=== PATIENT | male | born 1935 | race Caucasian/White ===

== ENCOUNTER 2018-11-23 03:44 | Emergency (ER) | payer MEDICARE, OTHER ==
[~2018-11-23] VITALS: Ht 175.3 cm; Wt 99.8 kg
--- NOTE | 2018-11-23 04:21 | ED Chest Pain ---
General Chief Complaint: Chest Pain Stated Complaint: CHEST PAIN, SOB Nursing Triage Note: Chest pain starting about 1 hour ago. 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 Symptoms began 90 minutes ago on bed. Patient states he woke up with us chest feeling funny. He does not radiate into his back and neck and shoulder job. He is not short of breath but does report nausea. Denies sweats. No fever, chills. No other acute symptoms or complaints. No history of CAD valvular heart disease. Patient does have a pacemaer located in [place], [place] Timing/Duration: 1-3 hours Severity/Quality: mild Location: substernal, epigastric Radiation: no radiation Activities at Onset: sleep, other (cough) Modifying Factors: improves with coughing ASA po SUPERVISOR PIG MACHINE: No NTG SL SUPERVISOR PIG MACHINE: No Associated Symptoms: abdominal pain Allergies and Home Medications Allergies Coded Allergies: No Known Drug Allergies (Unverified , 11/23/18) Home Medications Aspirin 325 Mg Tablet, 325 MG PO DAILY, (Reported) Calcium Carbonate 500 Mg Tablet, 500 MG PO DAILY, (Reported) Donepezil HCl 10 Mg Tablet, 10 MG PO DAILY, (Reported) Gemfibrozil 600 Mg Tablet, 600 MG PO DAILY, (Reported) Ibuprofen 800 Mg Tablet, 800 MG PO DAILY PRN for PAIN-MILD, (Reported) Metoprolol Tartrate 50 Mg Tablet, 50 MG PO BID, (Reported) Multivitamin 1 Each Tablet, 1 EACH PO DAILY, (Reported) Oxybutynin Chloride 5 Mg Tablet, 5 MG PO BID, (Reported) Ranitidine HCl 150 Mg Tablet, 150 MG PO DAILY, (Reported) Timolol Maleate 5 Ml Drop.daily, 5 ML OP DAILY, (Reported) Topiramate 200 Mg Tablet, 200 MG PO BID, (Reported) Travoprost 5 Ml Drops, 5 ML OP DAILY, (Reported) Patient Home Medication List Home Medication List Reviewed: Yes Review of Systems Review of Systems Constitutional: no symptoms reported Respiratory: Cough Cardiovascular: See HPI Gastrointestinal: No Symptoms Reported, See HPI, Abdomen Distended, Abdominal Pain, Nausea Genitourinary: No Symptoms Reported Musculoskeletal: no symptoms reported Skin: no symptoms reported Psychiatric/Neurological: No Symptoms Reported Endocrine: No Symptoms Reported Hematologic/Lymphatic: No Symptoms Reported Past Vfowxci-Ixctrj-Ttgzpf Hx Patient Social History Alcohol Use: Denies Use Recreational Drug Use: No Smoking Status: Never a Smoker 2nd Hand Smoke Exposure: No Recent Foreign Travel: No Contact w/Someone Who Travel: No Recent Infectious Disease Expo: No Recent Hopitalizations: No Physical Abuse: No Sexual Abuse: No Mistreated: No Fear: No Seasonal Allergies Seasonal Allergies: No Past Medical History Surgeries: Yes (Multiple hernia repairs) Cardiac, Coronary Stent, Orthopedic Respiratory: No Cardiac: Yes Aneurysm, Heart Attack, High Cholesterol, Hypertension Neurological: Yes Dementia Genitourinary: Yes Benign Prostatic Hyperpl Gastrointestinal: No Musculoskeletal: No Endocrine: No HEENT: Yes Cataract Loss of Vision: Left Hearing Impairment: Denies Cancer: Yes Melanoma Psychosocial: No Integumentary: No Blood Disorders: No Physical Exam Vital Signs Vital Signs - First Documented 11/23/18 03:45 Temp 96.5 Pulse 70 Resp 18 B/P (MAP) 163/87 (112) Pulse Ox 96 O2 Delivery Room Air Capillary Refill : Less Than 3 Seconds Height, Weight, BMI Height: 5'9.00" Weight: 220lbs. oz. 99.724193uo; BMI Method:Estimated General Appearance: No Apparent Distress, WD/WN HEENT: PERRL/EOMI, TMs Normal, Normal ENT Inspection Neck: Full Range of Motion, Normal Inspection Respiratory: Chest Non Tender, Lungs Clear, No Accessory Muscle Use Cardiovascular: Regular Rate, Rhythm, No Edema Gastrointestinal: Normal Bowel Sounds, No Organomegaly Neurologic/Psychiatric: Alert, Oriented x3, No Motor/Sensory Deficits Focused Exam Sepsis Stage: Ruled Out Respiratory: Chest Non Tender, Lungs Clear Cardiovascular: Regular Rate, Rhythm Progress/Results/Core Measures Results/Orders Lab Results Laboratory Tests Test 11/23/18 04:15 11/23/18 06:08 Range/Units White Blood Count 8.0 4.3-11.0 10^3/uL Red Blood Count 4.46 4.35-5.85 10^6/uL Hemoglobin 15.1 13.3-17.7 G/DL Hematocrit 45 40-54 % Mean Corpuscular Volume 101 H 80-99 FL Mean Corpuscular Hemoglobin 34 25-34 PG Mean Corpuscular Hemoglobin Concent 34 32-36 G/DL Red Cell Distribution Width 12.2 10.0-14.5 % Platelet Count 145 130-400 10^3/uL Mean Platelet Volume 11.9 H 7.4-10.4 FL Neutrophils (%) (Auto) 69 42-75 % Lymphocytes (%) (Auto) 21 12-44 % Monocytes (%) (Auto) 8 0-12 % Eosinophils (%) (Auto) 0 0-10 % Basophils (%) (Auto) 1 0-10 % Neutrophils # (Auto) 5.5 1.8-7.8 X 10^3 Lymphocytes # (Auto) 1.7 1.0-4.0 X 10^3 Monocytes # (Auto) 0.6 0.0-1.0 X 10^3 Eosinophils # (Auto) 0.1 0.0-0.3 10^3/uL Basophils # (Auto) 0.0 0.0-0.1 10^3/uL D-Dimer 0.81 H 0.00-0.49 UG/ML Sodium Level 141 135-145 MMOL/L Potassium Level 3.9 3.6-5.0 MMOL/L Chloride Level 103 98-107 MMOL/L Carbon Dioxide Level 21 21-32 MMOL/L Anion Gap 17 H 5-14 MMOL/L Blood Urea Nitrogen 34 H 7-18 MG/DL Creatinine 0.99 0.60-1.30 MG/DL Estimat Glomerular Filtration Rate > 60 BUN/Creatinine Ratio 34 Glucose Level 127 H 70-105 MG/DL Calcium Level 9.1 8.5-10.1 MG/DL Corrected Calcium 8.9 8.5-10.1 MG/DL Total Bilirubin 0.3 0.1-1.0 MG/DL Aspartate Amino Transf (AST/SGOT) 31 5-34 U/L Alanine Aminotransferase (ALT/SGPT) 26 0-55 U/L Alkaline Phosphatase 88 40-136 U/L Troponin T 12 10 <=15 NG/L Pro-B-Type Natriuretic Peptide 131.6 H <75.0 PG/ML Total Protein 7.0 6.4-8.2 GM/DL Albumin 4.2 3.2-4.5 GM/DL Lipase 29 8-78 U/L Rosemary Rangel - LILLY,GIACOMO DO Cbc With Automated Diff (11/23/18 03:58) Comprehensive Metabolic Panel (11/23/18 03:58) Lipase (11/23/18 03:58) Troponin T (11/23/18 03:58) Chest 1 View Ap/Pa Only (11/23/18 03:58) Probnp Fs (11/23/18 03:59) Ekg Tracing (11/23/18 03:48) Ct Angio Chest/Abd W (11/23/18 05:14) Troponin T (11/23/18 05:18) Iohexol Injection (Omnipaque 350 Mg/Ml 1 (11/23/18 05:30) Received Contrast (Hold Metformin- Contr (11/23/18 05:30) Sodium Chloride Flush (Catheter Flush Sy (11/23/18 05:30) Ns (Ivpb) (Sodium Chloride 0.9% Ivpb Bag (11/23/18 05:30) Fibrin Degradation Products (11/23/18 06:54) Medications Given in ED Current Medications Medications Dose Ordered Sig/Isidro Route Start Time Stop Time Status Last Admin Dose Admin Iohexol 125 ml ONCE ONCE IV 11/23/18 05:30 11/23/18 07:15 DC 11/23/18 06:00 125 ML Sodium Chloride 10 ml NEEDED PRN IV 11/23/18 05:30 11/23/18 06:00 10 ML Sodium Chloride 50 ml ONCE ONCE IV 11/23/18 05:30 11/23/18 07:15 DC 11/23/18 06:00 50 ML Vital Signs/I&O 11/23/18 03:45 Temp 96.5 Pulse 70 Resp 18 B/P (MAP) 163/87 (112) Pulse Ox 96 O2 Delivery Room Air Blood Pressure Mean: 112 Departure Communication (Admissions) Patient is chest pain-free. EKG shows an atrial paced rhythm without acute ST changes. Repeat troponin is negative. Chest x-ray nondiagnostic. CT chest reveals a 4.8 cm ascending aortic aneurysm with mural thrombus without evidence of dissection. Case discussed with Dr. Petersen front office administrator for CT surgery at [facility] he does not feel symptoms related to aneurysm. Recommends outpatient follow-up is scheduled for routine surveillance. Patient does have nasal congestion, postnasal drip, and cough possibly contributing GI AND chest pain. Recommend supportive care with PCP follow-up early next week. Return precautions reviewed. Patient verbalizes understanding and agreement discharge instructions prior to departure. Impression Primary Impression: Chest pain Additional Impressions: Bronchitis Ascending aortic aneurysm Disposition: HOME, SELF-CARE Condition: Improved Departure-Patient Inst. Decision time for Depature: 08:24 Referrals: NO,LOCAL PHYSICIAN (PCP) Primary Care Physician Patient Instructions: Chest Pain (DC), Acute Bronchitis Add. Discharge Instructions: Please take Mucinex Tylenol as needed for cough and chest wall pain. Follow-up with your PCP in 3 days for reevaluation of chest pain and cough. Follow-up with your plug cutter scheduled for reevaluation of thoracic aneurysm. Return to ED if new or worsening symptoms. All discharge instructions reviewed with patient and/or family. Voiced understanding. GIACOMO LILLY DO Nov 23, 2018 04:21
[2018-11-23 04:43] LABS: HEMATOCRIT 45 % (40-54); HEMOGLOBIN 15.1 G/DL (13.3-17.7); MEAN CORPUSCULAR HEMOGLOBIN 34 PG (25-34); MEAN CORPUSCULAR HGB CONC 34 G/DL (32-36); MEAN CORPUSCULAR VOLUME 101 FL (80-99); PLATELET COUNT 145 10^3/uL (130-400); RED CELL DISTRIBUTION WIDTH 12.2 % (10.0-14.5)
[2018-11-23 04:44] LABS: BASOPHILS % (AUTO) 1 % (0-10); EOSINOPHILS # (AUTO) 0.1 10^3/uL (0.0-0.3); EOSINOPHILS % (AUTO) 0 % (0-10); LYMPHOCYTES # (AUTO) 1.7 X 10^3 (1.0-4.0); LYMPHOCYTES % (AUTO) 21 % (12-44); MEAN PLATELET VOLUME 11.9 FL (7.4-10.4); MONOCYTES # (AUTO) 0.6 X 10^3 (0.0-1.0); MONOCYTES % (AUTO) 8 % (0-12); NEUTROPHILS # (AUTO) 5.5 X 10^3 (1.8-7.8); NEUTROPHILS % (AUTO) 69 % (42-75)
[2018-11-23 05:06] LABS: ALANINE AMINOTRANSFERASE 26 U/L (0-55); ALKALINE PHOSPHATASE 88 U/L (40-136); BILIRUBIN,TOTAL 0.3 MG/DL (0.1-1.0); BUN/CREATININE RATIO 34; CALCIUM 9.1 MG/DL (8.5-10.1); CARBON DIOXIDE 21 MMOL/L (21-32); CHLORIDE 103 MMOL/L (98-107); CREATININE SERUM 0.99 MG/DL (0.60-1.30); GFR ESTIMATED > 60; GLUCOSE 127 MG/DL (70-105); POTASSIUM 3.9 MMOL/L (3.6-5.0); SODIUM 141 MMOL/L (135-145)
[2018-11-23 05:07] LABS: ALBUMIN 4.2 GM/DL (3.2-4.5)
[2018-11-23 05:11] LABS: LIPASE 29 U/L (8-78)
[2018-11-23] MEDS ORDERED: HOLD METFORMIN - RECEIVED CONTRAST 20 ML VIAL IV SCH (05:30)
[2018-11-23] MEDS ORDERED: CATHETER FLUSH 10 ML SYR IV PRN (05:30)
[2018-11-23] MEDS ORDERED: IOHEXOL 350 MG/ML 150 ML (OMNIPAQUE 350) VIAL IV ONE (05:30)
[2018-11-23] MEDS ORDERED: NS 50 ML (IVPB) BAG IV ONE (05:30)
--- NOTE | 2018-11-23 07:47 | Diagnostic Imaging Report ---
PROCEDURE: CT angiography chest, abdomen and pelvis with intravenous contrast. TECHNIQUE: After intravenous administration of contrast, thin section axial CT angiography of the chest, abdomen, and pelvis were obtained. Multiple MIP reformats were provided. Auto Exposure Controls were utilized during the CT exam to meet ALARA standards for radiation dose reduction. DATE: November 23, 2018. INDICATION: 83-year-old male, chest pain and shortness of breath. History of aneurysm. COMPARISON: CT chest and abdomen September 23, 2009. FINDINGS: There is no identified pulmonary nodule or lung mass. There is groundglass attenuation in the right upper lobe, right lower lobe, left lower lobe, and the posterior aspect of the left upper lobe. There are some areas of mild linear opacities that likely relate to mild atelectasis. There is no additional identified focal airspace consolidation. There is no pneumothorax. There is no pleural effusion. There is no identified pulmonary embolus. The main pulmonary artery caliber measures 2.7 cm in diameter which is within normal limits. There are coronary artery calcifications and areas of atherosclerotic disease. The heart is not enlarged. There is no pericardial effusion. The proximal descending thoracic aorta measures up to 3.7 cm in diameter. The distal descending thoracic aorta measures 3.0 cm in diameter. There is no evidence of aortic dissection or acute aortic injury. The celiac axis and superior mesenteric arteries are patent. The bilateral renal arteries are patent. There are 2 renal arteries bilaterally. The inferior mesenteric artery is patent. The abdominal aorta is normal in caliber. There is patent arterial vasculature. There is no identified abnormally enlarged mediastinal, hilar, or axillary lymph node which meets CT size criteria for adenopathy. The outer liver contours are not grossly nodular. There is a low-attenuation lesion in the liver on axial image 101 which measures 1.8 cm in size with internal attenuation measuring 21 Hounsfield units. This is unchanged in size since September 23, 2009 consistent with benign etiology. There is a low-attenuation lesion in the liver on axial image 84 measuring 1.8 cm in size which is also unchanged and does have internal attenuation compatible with a benign hepatic cyst. There are additional subcentimeter low-attenuation liver lesions which are too small to definitively characterize. There is cholelithiasis with no findings to suggest acute cholecystitis. There is no intrahepatic or extrahepatic bile duct dilation. The main pancreatic duct is not abnormally dilated. Unremarkable appearance of the pancreatic parenchyma. The spleen is normal in size. The adrenal glands are unremarkable. There is an exophytic low-attenuation left renal lesion on axial image 139 measuring 4.3 cm in size with internal attenuation of 13 Hounsfield units. This does have prior internal attenuation compatible with benign cyst on prior exam. There are additional benign left renal cysts. There are subcentimeter renal lesions bilaterally which are too small to characterize. The urinary collecting systems are not distended. There is no identified renal or ureteral stone. The urinary bladder is unremarkable in appearance. The intestinal tract is not distended. The appendix is well seen on axial image 176 and adjacent sequential images. There is no evidence of acute appendicitis. There is no free intraperitoneal air. There is no drainable fluid collection. There is no free pelvic fluid. There is no identified abnormally enlarged lymph node in the abdomen or pelvis which meets CT size criteria for adenopathy. There are multilevel degenerative changes of the spine. There are limitations of skeletal assessment given lack of non-MIP coronal and sagittal reformats. IMPRESSION: 1. No evidence of aortic dissection or acute aortic injury. 2. Slight prominence of the proximal descending thoracic aorta measuring up to 3.7 cm in diameter. 3. Multifocal groundglass lung attenuation which may relate to mild edema, atypical infectious process, or pneumonitis. 4. No identified acute abnormality in the abdomen or pelvis. Dictated by: Dictated on workstation # [id number]
[2018-11-23] MEDS ORDERED: GEMF600T8 PO (07:55)
[2018-11-23] MEDS ORDERED: TIMO5DRO31 OP (07:55)
[2018-11-23] MEDS ORDERED: IBUP-1780 PO (07:55)
[2018-11-23] MEDS ORDERED: OXYB5TAB9 PO (07:55)
[2018-11-23] MEDS ORDERED: TOPI200T8 PO (07:55)
[2018-11-23] MEDS ORDERED: CALC-823 PO (07:55)
[2018-11-23] MEDS ORDERED: ASPI-808 PO (07:55)
[2018-11-23] MEDS ORDERED: DONE10TA41 PO (07:55)
[2018-11-23] MEDS ORDERED: FINA5TAB PO (07:55)
[2018-11-23] MEDS ORDERED: TRAV5DRO OP (07:55)
[2018-11-23] MEDS ORDERED: RANI150T11 PO (07:55)
[2018-11-23] MEDS ORDERED: HYDR12.5 PO (07:55)
[2018-11-23] MEDS ORDERED: MULT-974 PO (07:55)
[2018-11-23] MEDS ORDERED: METO50TA15 PO (07:55)
[2018-11-23 08:32] VITALS: BP 144/66
--- NOTE | 2018-11-23 08:35 | Diagnostic Imaging Report ---
EXAMINATION: Chest radiograph, portable AP view. DATE: November 23, 2018 at 0402 hours. INDICATION: 83-year-old male, chest pain, shortness of breath. COMPARISON: CT chest, abdomen and pelvis September 23, 2009. FINDINGS: There are median sternotomy wires. There is a left-sided cardiac assist device with leads. There are surgical leon projecting over the right upper lobe. Lung volumes are somewhat low. There is no identified pneumothorax. There is no large pleural effusion. There are streaky opacities in the left lung base which may relate to atelectasis and/or infiltrate. IMPRESSION: 1. Streaky opacities in the left lung base which may relate to atelectasis and/or infiltrate. 2. Somewhat low lung volumes. Dictated by: Dictated on workstation # [id number]
== END 2018-11-23 08:32 | disposition home or self-care (01) ==
LOC: EDUNIT# 03:44 → ER FS 03:48
DX: R07.81 Pleurodynia (principal); J40 Bronchitis, not specified as acute or chronic; I71.2 Thoracic aortic aneurysm, without rupture; I10 Essential (primary) hypertension; I25.2 Old myocardial infarction; E78.00 Pure hypercholesterolemia, unspecified; F03.90 Unspecified dementia, unspecified severity, without behavioral disturbance, psychotic disturbance, mood disturbance, and anxiety; Z85.820 Personal history of malignant melanoma of skin; Z87.448 Personal history of other diseases of urinary system; Z79.82 Long term (current) use of aspirin; Z95.5 Presence of coronary angioplasty implant and graft; Z98.890 Other specified postprocedural states
CPT/HCPCS: 36415; 71045; 71275; 74175; 80053; 83690; 83880; 84484; 85025; 85379; 93005

== ENCOUNTER → 2019-05-06 | Outpatient (CLI) | payer MEDICARE, OTHER ==
[~2019-05-06] MED LIST: ASPI-808 PO; CALC-823 PO; DONE10TA41 PO; FINA5TAB PO; GEMF600T8 PO; HYDR12.5 PO; IBUP-1780 PO; METO50TA15 PO; MULT-974 PO; OXYB5TAB9 PO; RANI150T11 PO; TIMO5DRO31 OP; TOPI200T8 PO; TRAV5DRO OP
--- NOTE | 2019-05-06 14:48 | Diagnostic Imaging Report ---
INDICATION: Acute-onset left-sided low back pain. TECHNIQUE: AP, lateral, and spot imaging of the lumbar spine. CORRELATION STUDY: None. FINDINGS: There is mild leftward curvature of the lumbar spine, apex at L3 level. There is marked disc space narrowing at essentially all levels of the lumbar spine. Endplate osteophyte and spur-like formation is noted. There is slight asymmetric loss of height suggested at the superior L3 endplate. Endplate osteophyte formation likely predisposes to potential foraminal and/or canal narrowing. Asymmetric areas of hypertrophic facet arthropathy are also present. There does appear to be fusion across the bilateral sacroiliac joints. IMPRESSION: 1. Suggestion of slight loss of height at the superior L3 endplate. Age of this is indeterminate, but possibility of acute-appearing compression deformity is not excluded. If further evaluation is desired, MRI would be recommended. 2. Rather marked degenerative disc disease with marked disc space narrowing at essentially all levels of the lumbar spine. Prominent endplate osteophyte formation does predispose to potential central canal and/or foraminal narrowing. Dictated by: Dictated on workstation # [id number]
== END ==
LOC: RAD FS 09:07
PROVIDERS: ATTEND Family Medicine
DX: M51.36 Other intervertebral disc degeneration, lumbar region (principal)
CPT/HCPCS: 72100

== ENCOUNTER 2019-05-25 13:30 | Emergency (ER) | payer MEDICARE, OTHER ==
[~2019-05-25] VITALS: Ht 177.8 cm; Wt 100.6 kg
[2019-05-25] MEDS ORDERED: TETANUS,DIPTH,PERTUSS P/F (BOOSTRIX) 0.5 ML VIAL IM ONE (13:45)
--- NOTE | 2019-05-25 13:49 | ED Fall/Injury ---
General Stated Complaint: FALL; CHEST PAIN Source: patient Exam Limitations: no limitations History of Present Illness Date Seen by Provider: May 25, 2019 Time Seen by Provider: 13:34 Initial Comments The patient is a very pleasant 83-year-old male presents with his for evaluation of a chest wall injury after a fall. He states that he was at a restaurant parking lot when he lost his balance and fell onto his left side. He has some skin tears to the left elbow and left hand which were cleaned and dressed prior to coming. He coughed after the fall and complained of some left- sided chest wall pain and his was concerned he could a rib fracture. Upon arrival the patient is smiling and appears comfortable. He is unsure of his te tanus status this will be updated today. He is alert, calm, and appears to be in no distress. He denies shortness of breath, back pain, abdominal pain, head or neck pain, extremity pain, nausea or vomiting. He did not hit his head or lose consciousness. Occurred: just prior to arrival Severity: mild Context: lost balance Loss of Consciousness: no loss of consciousness Modifying Factors: Improves With Other (coughing makes left rib pain worse) Associated Symptoms (Fall): Denies Symptoms Allergies and Home Medications Allergies Coded Allergies: No Known Drug Allergies (Unverified , 11/23/18) Home Medications Aspirin 81 Mg Tablet.dr, 81 MG PO DAILY, (Reported) Calcium Carbonate 500 Mg Tablet, 500 MG PO DAILY, (Reported) Donepezil HCl 10 Mg Tablet, 10 MG PO DAILY, (Reported) Gemfibrozil 600 Mg Tablet, 600 MG PO DAILY, (Reported) Ibuprofen 800 Mg Tablet, 800 MG PO DAILY PRN for PAIN-MILD, (Reported) Metoprolol Tartrate 50 Mg Tablet, 50 MG PO BID, (Reported) Multivitamin 1 Each Tablet, 1 EACH PO DAILY, (Reported) Oxybutynin Chloride 5 Mg Tablet, 5 MG PO BID, (Reported) Ranitidine HCl 150 Mg Tablet, 150 MG PO DAILY, (Reported) Timolol Maleate 5 Ml Drop.daily, 5 ML OP DAILY, (Reported) Topiramate 200 Mg Tablet, 200 MG PO BID, (Reported) Travoprost 5 Ml Drops, 5 ML OP DAILY, (Reported) Patient Home Medication List Home Medication List Reviewed: Yes Review of Systems Review of Systems Constitutional: no symptoms reported Eyes: No Symptoms Reported Ears, Nose, Mouth, Throat: no symptoms reported Cardiovascular: no symptoms reported Gastrointestinal: no symptoms reported Genitourinary: no symptoms reported Musculoskeletal: other (left anterolateral chest wall pain) Skin: no symptoms reported Psychiatric/Neurological: No Symptoms Reported All Other Systems Reviewed Negative Unless Noted: Yes Past Sbjkeuz-Gdhamc-Ofkixi Hx Past Med/Social Hx: Reviewed Nursing Past Med/Soc Hx Patient Social History 2nd Hand Smoke Exposure: No Recent Hopitalizations: No Seasonal Allergies Seasonal Allergies: No Past Medical History Surgeries: Yes (Multiple hernia repairs) Cardiac, Coronary Stent, Orthopedic Respiratory: No Cardiac: Yes Aneurysm, Heart Attack, High Cholesterol, Hypertension Neurological: Yes Dementia Genitourinary: Yes Benign Prostatic Hyperpl Gastrointestinal: No Musculoskeletal: No Endocrine: No HEENT: Yes Cataract Loss of Vision: Left Hearing Impairment: Denies Cancer: Yes Melanoma Psychosocial: No Integumentary: No Blood Disorders: No Physical Exam Vital Signs Vital Signs - First Documented Capillary Refill : Height, Weight, BMI Height: 5'9.00" Weight: 220lbs. oz. 99.054741ea; BMI Method:Estimated General Appearance: WD/WN, no apparent distress HEENT: PERRL/EOMI, normal ENT inspection Neck: non-tender, full range of motion, supple, normal inspection Cardiovascular: regular rate, rhythm Respiratory: lungs clear, normal breath sounds, no respiratory distress, no accessory muscle use Gastrointestinal: normal bowel sounds, non tender, soft Back: normal inspection, no CVA tenderness, no vertebral tenderness Extremities: normal range of motion, non-tender, normal inspection, no pedal edema Neurologic/Psychiatric: photoengraving helper II-XII nml as tested, no motor/sensory deficits, alert, normal mood/affect, oriented x 3 Skin: normal color, warm/dry Eldon Coma Score Best Eye Response: (4) Open Spontaneously Best Verbal Response: (5) Oriented Best Motor Response: (6) Obeys Commands Gareth Total: 15 Progress/Results/Core Measures Results/Orders My Orders Orders - CORKY MEJIA DO Ribs 2-3 View Left (05/25/19 13:43) Dipht,Pertuss(Acell),Tet Adult (Boostrix (05/25/19 13:45) Medications Given in ED Current Medications Medications Dose Ordered Sig/Isidro Route Start Time Stop Time Status Last Admin Dose Admin Diphtheria/ Tetanus/Acell Pertussis 0.5 ml ONCE ONCE IM 05/25/19 13:45 05/25/19 13:46 DC 05/25/19 14:18 0.5 ML Vital Signs/I&O 05/25/19 05/25/19 13:34 13:34 Temp 36.4 36.4 Pulse 67 67 Resp 20 20 B/P (MAP) 127/79 (95) 127/79 (95) Pulse Ox 96 96 O2 Delivery Room Air Room Air Progress Progress Note : Progress Note @1437 - Patient updated on imaging results which are unremarkable. His tetanus has been updated. The patient has no additional complaints and is asking to go home. Workup today fails reveal any emergent pathology. No treatment needed for patient's skin tears. He is stable for discharge and follow-up with his PCP in the next 2-3 days. Advised the patient to return to the emergency Department imm ediately for new or worsening symptoms. Diagnostic Imaging Comments [facility], [place] NAME: RHEASALLIE B MED REC#: [id number] PT STATUS: REG ER : 1935 PHYSICIAN: CORKY MEJIA DO ADMIT DATE: 05/25/19/ER FS Draft Date of Exam:05/25/19 RIBS 2-3 VIEW LEFT INDICATION: Fall. Left chest wall pain. FINDINGS: 3 views. No rib fractures are demonstrated. Pacemaker overlies the left chest. Median sternotomy changes are noted. IMPRESSION: Negative left ribs. Dictated on workstation # [id number] Dict: 05/25/19 1401 Trans: 05/25/19 1404 [facility] [id number] Interpreted by: BRITNI DONG MD Electronically signed by: Departure Impression Primary Impression: Chest wall contusion Additional Impression: Skin tear of left elbow without complication Disposition: 01 HOME, SELF-CARE Condition: Stable Departure-Patient Inst. Referrals: KIRILL HUBER MD (PCP/Family) Primary Care Physician Patient Instructions: Bruised Rib (DC) Add. Discharge Instructions: Follow-up with your doctor in the next 2-3 days. Return to the emergency Department immediately for new or worsening symptoms. Take Tylenol or ibuprofen at home for pain relief is needed. CORKY MEJIA DO May 25, 2019 13:49
--- NOTE | 2019-05-25 14:04 | Diagnostic Imaging Report ---
INDICATION: Fall. Left chest wall pain. FINDINGS: 3 views. No rib fractures are demonstrated. Pacemaker overlies the left chest. Median sternotomy changes are noted. IMPRESSION: Negative left ribs. Dictated by: Dictated on workstation # [id number]
[2019-05-25] MEDS ORDERED: ASPI-586 PO (14:11)
[2019-05-25 15:07] VITALS: BP 130/76
--- NOTE | 2019-05-25 15:07 | NUR ---
Pt discharged to home in care of verbalizing understanding of home instructions. Pt is at his normal mentation of forgetful and promptings required. VSS
== END 2019-05-25 15:00 | disposition home or self-care (01) ==
LOC: EDUNIT# 13:30 → ER FS 13:31
DX: S20.212A Contusion of left front wall of thorax, initial encounter (principal); S51.002A Unspecified open wound of left elbow, initial encounter; I10 Essential (primary) hypertension; E78.00 Pure hypercholesterolemia, unspecified; I25.2 Old myocardial infarction; F03.90 Unspecified dementia, unspecified severity, without behavioral disturbance, psychotic disturbance, mood disturbance, and anxiety; N40.0 Benign prostatic hyperplasia without lower urinary tract symptoms; R40.2142 Coma scale, eyes open, spontaneous, at arrival to emergency department; R40.2252 Coma scale, best verbal response, oriented, at arrival to emergency department; R40.2362 Coma scale, best motor response, obeys commands, at arrival to emergency department; Z85.828 Personal history of other malignant neoplasm of skin; Z79.82 Long term (current) use of aspirin; Z98.890 Other specified postprocedural states; Z95.5 Presence of coronary angioplasty implant and graft; W01.0XXA Fall on same level from slipping, tripping and stumbling without subsequent striking against object, initial encounter; Y92.481 Parking lot as the place of occurrence of the external cause
CPT/HCPCS: 71100; 90471; 90715

== ENCOUNTER 2020-04-03 20:07 | Emergency (ER) | payer MEDICARE, OTHER ==
[~2020-04-03 20:07] MED LIST changes: +ASPI-586 PO; +OXYB5TAB13 PO; -OXYB5TAB9 PO
--- NOTE | 2020-04-03 20:10 | ED General ---
General Stated Complaint: HEADACHE/MOUTH SORE Source of Information: Patient History of Present Illness Date Seen by Provider: Apr 03, 2020 Time Seen by Provider: 20:09 Initial Comments Mr. Ragland is an 84 y/o male with PMH significant for dementia who is brought to the ER this evening by his for evaluation of headache. states he has a known hx of recurrent headaches for which he had been previously evaluated by primary care physician. No acute cause for these had been found. She states he has frequent, fleeting type headaches which are difficult to characterize further because of his baseline dementia. On arrival to the ER, the patient denies any complaints. Does not c/o headache. states symptoms resolved but that this episode seemed more severe compared to normal and that the patient seemed to be in more distress. Episode only lasted a few minutes. During that time, he also c/o some dental pain. She looked at his teeth and reports that there were many more cavities than she thought. In the ER, patient does not complain of dental pain initially but does state his teeth hurt when asked about it. He cannot be more specific about which tooth may be culprit. reports him to be at baseline health otherwise. No recent illness. No fever. He is noted this evening to be incontinent of urine, which she reports to be baseline. Allergies and Home Medications Allergies Coded Allergies: No Known Drug Allergies (Unverified , 11/23/18) Home Medications Amoxicillin 500 Mg Capsule, 500 MG PO BID Prescribed by: GUILLERMINA HANSEN on 04/03/202131 Aspirin 81 Mg Tablet.dr, 81 MG PO DAILY, (Reported) Calcium Carbonate 500 Mg Tablet, 500 MG PO DAILY, (Reported) Donepezil HCl 10 Mg Tablet, 10 MG PO DAILY, (Reported) Gemfibrozil 600 Mg Tablet, 600 MG PO DAILY, (Reported) Ibuprofen 800 Mg Tablet, 800 MG PO DAILY PRN for PAIN-MILD, (Reported) Metoprolol Tartrate 50 Mg Tablet, 50 MG PO BID, (Reported) Multivitamin 1 Each Tablet, 1 EACH PO DAILY, (Reported) Oxybutynin Chloride 5 Mg Tablet, 5 MG PO BID, (Reported) Ranitidine HCl 150 Mg Tablet, 150 MG PO DAILY, (Reported) Timolol Maleate 5 Ml Drop.daily, 5 ML OP DAILY, (Reported) Topiramate 200 Mg Tablet, 200 MG PO BID, (Reported) Travoprost 5 Ml Drops, 5 ML OP DAILY, (Reported) Patient Home Medication List Home Medication List Reviewed: Yes Review of Systems Review of Systems Constitutional: no symptoms reported EENTM: see HPI Respiratory: no symptoms reported Cardiovascular: no symptoms reported Gastrointestinal: no symptoms reported Genitourinary: see HPI Musculoskeletal: no symptoms reported Skin: no symptoms reported Psychiatric/Neurological: See HPI All Other Systems Reviewed Negative Unless Noted: Yes Physical Exam Vital Signs Vital Signs - First Documented 04/03/20 20:18 Temp 36.7 Pulse 80 Resp 18 B/P (MAP) 135/79 (97) Pulse Ox 96 O2 Delivery Room Air Capillary Refill : Height, Weight, BMI Height: '" Weight: lbs. oz. kg; BMI Method: General Appearance: No Apparent Distress, WD/WN HEENT: PERRL/EOMI, Other (multiple dental caries and teeth ground down to pulp. No local erythema of gingival tissue. no fluctuance) Cardiovascular: Regular Rate, Rhythm Extremity: Normal Capillary Refill Neurologic/Psychiatric: Alert, Normal Mood/Affect, content strategy lead II-XII Norm as Tested Skin: Normal Color, Warm/Dry Progress/Results/Core Measures Suspected Sepsis SIRS Temperature: Pulse: Respiratory Rate: Laboratory Tests 04/03/20 20:22: White Blood Count 10.1 Blood Pressure / Mean: Laboratory Tests 04/03/20 20:22: Creatinine 1.06, Platelet Count 155 Results/Orders Lab Results Laboratory Tests Test 04/03/20 20:22 Range/Units White Blood Count 10.1 4.3-11.0 10^3/uL Red Blood Count 4.59 4.35-5.85 10^6/uL Hemoglobin 15.8 13.3-17.7 G/DL Hematocrit 46 40-54 % Mean Corpuscular Volume 99 80-99 FL Mean Corpuscular Hemoglobin 34 25-34 PG Mean Corpuscular Hemoglobin Concent 35 32-36 G/DL Red Cell Distribution Width 12.4 10.0-14.5 % Platelet Count 155 130-400 10^3/uL Mean Platelet Volume 11.9 H 7.4-10.4 FL Neutrophils (%) (Auto) 71 42-75 % Lymphocytes (%) (Auto) 19 12-44 % Monocytes (%) (Auto) 8 0-12 % Eosinophils (%) (Auto) 1 0-10 % Basophils (%) (Auto) 0 0-10 % Neutrophils # (Auto) 7.1 1.8-7.8 X 10^3 Lymphocytes # (Auto) 2.0 1.0-4.0 X 10^3 Monocytes # (Auto) 0.8 0.0-1.0 X 10^3 Eosinophils # (Auto) 0.1 0.0-0.3 10^3/uL Basophils # (Auto) 0.0 0.0-0.1 10^3/uL Sodium Level 138 135-145 MMOL/L Potassium Level 3.9 3.6-5.0 MMOL/L Chloride Level 103 98-107 MMOL/L Carbon Dioxide Level 20 L 21-32 MMOL/L Anion Gap 15 H 5-14 MMOL/L Blood Urea Nitrogen 31 H 7-18 MG/DL Creatinine 1.06 0.60-1.30 MG/DL Estimat Glomerular Filtration Rate > 60 BUN/Creatinine Ratio 29 Glucose Level 198 H 70-105 MG/DL Calcium Level 9.6 8.5-10.1 MG/DL My Orders Orders - GUILLERMINA HANSEN DO Ct Head Wo (04/03/20 20:22) Cbc With Automated Diff (04/03/20 20:22) Basic Metabolic Panel (04/03/20 20:22) Amoxicillin Capsule (Polymox Capsule) (04/03/20 21:45) Vital Signs/I&O 04/03/20 20:18 Temp 36.7 Pulse 80 Resp 18 B/P (MAP) 135/79 (97) Pulse Ox 96 O2 Delivery Room Air Capillary Refill : Progress Note : Time: 20:09 Progress Note Patient is seen and examined. Patient is very pleasant and joking. Denies complaints unless prompted he c/o tooth pain. Denies headache currently. Neuro exam in nonfocal. Available history is primarily obtained from his . This evening we will check CT to r/o any progressive mass effect. CBC, BMP. Patient has multiple teeth which could be source of pain although no acute abscess or gingival erythema is seen. ED Summary: Patient seen in the emergency department as above. CBC is normal. BMP reveals mild low CO2 and barely elevated anion gap, but no acute indication for admission. Recommended to patient and to increase PO hydration. He clinically is very stable with normal vitals. He is dry mucous membranes. Unclear exactly what is causing his headaches. His CT scan is negative for acute findings. Based on examination of his mouth, it is possible he is experiencing some discomfort or has periapical infections present or simply has pain from his many dental caries. Tonight, he is empirically placed on amoxicillin and given the same to take at home. Recommended to his that she bring him back to the ER for any new or worsening symptoms. Complete antibiotics. Otherwise, follow-up with primary care physician. Departure Impression Primary Impression: Dental caries Disposition: HOME, SELF-CARE Condition: Stable Departure-Patient Inst. Scripts Amoxicillin (Amoxicillin) 500 Mg Capsule 500 MG PO BID, #20 CAP 0 Refills Prov: GUILLERMINA HANSEN DO 04/03/20 GUILLERMINA HANSEN DO Apr 03, 2020 20:09
--- OUTSIDE RECORDS SUMMARY | 2020-04-03 20:14 | XMS REPORT | Continuity of Care Document ---
Author Organization Unknown Address Unknown Phone Unavailable Allergies Active Description Code Type Severity Reaction Onset Reported/Identified Relationship to Patient Clinical Status Yes No Known Drug Allergies [id number] Drug Allergy Unknown N/A 11/23/2018 Medications There is no data. Problems Date Dx Coded Attending Type Code Diagnosis Diagnosed By 11/23/2018 GIACOMO LILLY DO, Ot E78.00 PURE HYPERCHOLESTEROLEMIA, UNSPECIFIED 11/23/2018 GIACOMO LILLY DO, Ot F03.90 UNSPECIFIED DEMENTIA WITHOUT BEHAVIORAL 11/23/2018 GIACOMO LILLY DO, Ot I10 ESSENTIAL (PRIMARY) HYPERTENSION 11/23/2018 GIACOMO LILLY DO, Ot I25.2 OLD MYOCARDIAL INFARCTION 11/23/2018 GIACOMO LILLY DO, Ot I71.2 THORACIC AORTIC ANEURYSM, WITHOUT RUPTUR 11/23/2018 GIACOMO LILLY DO, Ot J40 BRONCHITIS, NOT SPECIFIED ACUTE OR CH 11/23/2018 GIACOMO LILLY DO, Ot R07.81 PLEURODYNIA 11/23/2018 GIACOMO LILLY DO, Ot Z79.82 PENITENTIARY (CURRENT) USE OF ASPIRIN 11/23/2018 GIACOMO LILLY DO, Ot Z85.820 PERSONAL HISTORY OF MALIGNANT MELANOMA O 11/23/2018 GIACOMO LILLY DO, Ot Z87.448 PERSONAL HISTORY OF OTHER DISEASES OF UR 11/23/2018 GIACOMO LILLY DO, Ot Z95.5 PRESENCE OF CORONARY ANGIOPLASTY IMPLANT 11/23/2018 GIACOMO LILLY DO, Ot Z98.890 OTHER SPECIFIED POSTPROCEDURAL STATES 05/27/2019 JACKIE FRIED DO Ot E78. 00 PURE HYPERCHOLESTEROLEMIA, UNSPECIFIED 05/27/2019 JACKIE FRIED DO Ot F03. 90 UNSPECIFIED DEMENTIA WITHOUT BEHAVIORAL 05/27/2019 JACKIE FRIED DO Ot I10 ESSENTIAL (PRIMARY) HYPERTENSION 05/27/2019 JACKIE FRIED DO Ot I25. 2 OLD MYOCARDIAL INFARCTION 05/27/2019 JACKIE FRIED DO Ot N40. 0 BENIGN PROSTATIC HYPERPLASIA WITHOUT LOW 05/27/2019 JACKIE FRIED DO Ot R40.2142 COMA SCALE, EYES OPEN, SPONTANEOUS, EMR 05/27/2019 JACKIE FRIED DO Ot R40.2252 COMA SCALE, BEST VERBAL RESPONSE, ORIENT 05/27/2019 JACKIE FRIED DO Ot R40.2362 COMA SCALE, BEST MOTOR RESPONSE, OBEYS C 05/27/2019 JACKIE FRIED DO Ot S20.212A CONTUSION OF LEFT FRONT WALL OF THORAX, 05/27/2019 JACKIE FRIED DO Ot S29.9XXA UNSPECIFIED INJURY OF THORAX, INITIAL EN 05/27/2019 JACKIE FRIED DO Ot S51.002A UNSPECIFIED OPEN WOUND OF LEFT ELBOW, IN 05/27/2019 JACKIE FRIED DO Ot W01.0XXA FALL SAME LEV FROM SLIP/TRIP W/O STRIKE 05/27/2019 JACKIE FRIED DO Ot Y92.[address] OF OCCURRENCE O 05/27/2019 JACKIE FRIED DO Ot Z79. 82 [employer] (CURRENT) USE OF ASPIRIN 05/27/2019 JACKIE FRIED DO Ot Z85.828 PERSONAL HISTORY OF OTHER MALIGNANT NEOP 05/27/2019 JACKIE FRIED DO Ot Z95. 5 PRESENCE OF CORONARY ANGIOPLASTY IMPLANT 05/27/2019 JACKIE FRIED DO Ot Z98.890 OTHER SPECIFIED POSTPROCEDURAL STATES 05/27/2019 JAKCIE FRIED DO Ot E78. 00 PURE HYPERCHOLESTEROLEMIA, UNSPECIFIED 05/27/2019 JACKIE FRIED DO Ot F03. 90 UNSPECIFIED DEMENTIA WITHOUT BEHAVIORAL 05/27/2019 JACKIE FRIED DO Ot I10 ESSENTIAL (PRIMARY) HYPERTENSION 05/27/2019 JACKIE FRIED DO Ot I25. 2 OLD MYOCARDIAL INFARCTION 05/27/2019 JACKIE FRIED DO Ot N40. 0 BENIGN PROSTATIC HYPERPLASIA WITHOUT LOW 05/27/2019 JACKIE FRIED DO Ot R40.2142 COMA SCALE, EYES OPEN, SPONTANEOUS, EMR 05/27/2019 JACKIE FRIED DO Ot R40.2252 COMA SCALE, BEST VERBAL RESPONSE, ORIENT 05/27/2019 JACKIE FRIED DO Ot R40.2362 COMA SCALE, BEST MOTOR RESPONSE, OBEYS C 05/27/2019 JACKIE FRIED DO Ot S20.212A CONTUSION OF LEFT FRONT WALL OF THORAX, 05/27/2019 JACKIE FRIED DO Ot S29.9XXA UNSPECIFIED INJURY OF THORAX, INITIAL EN 05/27/2019 CORKY DO JACKIE Yesenia Ot S51.002A UNSPECIFIED OPEN WOUND OF LEFT ELBOW, IN 05/27/2019 JACKIE FRIED DO Ot W01.0XXA FALL SAME LEV FROM SLIP/TRIP W/O STRIKE 05/27/2019 JACKIE FRIED DO Ot Y92.[address] OF OCCURRENCE O 05/27/2019 JACKIE FRIED DO Ot Z79. 82 PENITENTIARY (CURRENT) USE OF ASPIRIN 05/27/2019 JACKIE FRIED DO Ot Z85.828 PERSONAL HISTORY OF OTHER MALIGNANT NEOP 05/27/2019 JACKIE FRIED DO Ot Z95. 5 PRESENCE OF CORONARY ANGIOPLASTY IMPLANT 05/27/2019 JACKIE FRIED DO Ot Z98.890 OTHER SPECIFIED POSTPROCEDURAL STATES 05/28/2019 CECILE ART, KIRILL Rangel Ot M51.36 OTHER INTERVERTEBRAL DISC DEGENERATION, Procedures There is no data. Results Test Result Range Complete blood count (CBC) with automate d white blood cell (WBC) differential - 11/23/18 04:15 Blood leukocytes automated count (number/volume) 8.0 10*3/uL 4.3-11.0 Blood erythrocytes automated count (number/volume) 4.46 10*6/uL 4.35-5.85 Venous blood hemoglobin measurement (mass/volume) 15.1 g/dL 13.3-17.7 Blood hematocrit (volume fraction) 45 % 40-54 Automated erythrocyte mean corpuscular volume 101 [foz_us] 80-99 Automated erythrocyte mean corpuscular h emoglobin (mass per erythrocyte) 34 pg 25-34 Automated erythrocyte mean corpuscular h emoglobin concentration measurement (mass/volume) 34 g/dL 32-36 Automated erythrocyte distribution width ratio 12. 2 % 10.0- 14.5 Automated blood platelet count (count/volume) 145 10*3/uL 130-400 Automated blood platelet mean volume measurement 11.9 [foz_us] 7.4-10.4 Automated blood neutrophils/100 leukocytes 69 % 42-75 Automated blood lymphocytes/100 leukocytes 21 % 12-44 Blood monocytes/100 leukocytes 8 % 0-12 Automated blood eosinophils/100 leukocytes 0 % 0-10 Automated blood basophils/100 leukocytes 1 % 0-10 Blood neutrophils automated count (number/volume) 5.5 10*3 1.8-7.8 Blood lymphocytes automated count (number/volume) 1.7 10*3 1.0-4.0 Blood monocytes automated count (number/volume) 0. 6 10*3 0.0-1.0 Automated eosinophil count 0.1 10*3/uL 0 .0-0.3 Automated blood basophil count (count/volume) 0.0 10*3/uL 0.0-0.1 Comprehensive metabolic panel - 11/23/18 04:15 Serum or plasma sodium measurement (moles/volume) 141 mmol/L 135-145 Serum or plasma potassium measurement (moles/volume) 3.9 mmol/L 3.6-5.0 Serum or plasma chloride measurement (moles/volume) 103 mmol/L 98-107 Carbon dioxide 21 mmol/L 21-32 Serum or plasma anion gap determination (moles/volume) 17 mmol/L 5-14 Serum or plasma urea nitrogen measurement (mass/volume ) 34 mg/dL 7-18 Serum or plasma creatinine measurement (mass/volume) 0.99 mg/dL 0.60-1.30 Serum or plasma urea nitrogen/creatinine mass ratio 34 NRG Serum or plasma creatinine measurement w ith calculation of estimated glomerular filtration rate > NRG Serum or plasma glucose measurement (mass/volume) 127 mg/dL 70-105 Serum or plasma calcium measurement (mass/volume) 9.1 mg/dL 8.5-10.1 Serum or plasma total bilirubin measurement (mass/volu me) 0.3 mg/dL 0.1-1.0 Serum or plasma alkaline phosphatase liz surement (enzymatic activity/volume) 88 U/L 40-136 Serum or plasma aspartate aminotransfera se measurement (enzymatic activity/volume) 31 U/L 5-34 Serum or plasma alanine aminotransferase measurement (enzymatic activity/volume) 26 U/L 0-55 Serum or plasma protein measurement (mass/volume) 7.0 g/dL 6.4-8.2 Serum or plasma albumin measurement (mass/volume) 4.2 g/dL 3.2-4.5 CALCIUM CORRECTED 8.9 mg/dL 8.5-10.1 TROPONIN T - 11/23/18 04:15 TROPONIN T 12 % <=15 PROBNP FS - 11/23/18 04:15 PROBNP FS 131.6 pg/mL <75.0 Lipase - 11/23/18 04:15 Lipase 29 U/L 8-78 Fibrin D-dimer FEU measurement in platel et poor plasma (mass/volume) - 11/23/18 04:15 Fibrin D-dimer FEU measurement in platelet poor plasma (mass/volume) 0.81 ug/mL 0.00-0.49 TROPONIN T - 11/23/18 06:08 TROPONIN T 10 % <=15 CBC - 01/13/19 08:43 WHITE BLOOD CELL COUNT 7.2 Thousand/uL 3 .8-10.8 RED BLOOD CELL COUNT 4.60 Million/uL 4.2 0-5.80 HEMOGLOBIN 15.9 g/dL 13.2-17.1 HEMATOCRIT 46.9 % 38.5-50.0 MCV 102.0 fL 80.0-100.0 MCH 34.6 pg 27.0-33.0 MCHC 33.9 g/dL 32.0-36.0 RDW 12.0 % 11.0-15.0 PLATELET COUNT 154 Thousand/uL 140-400 MPV 12.1 fL 7.5-12.5 ABSOLUTE NEUTROPHILS 4752 cells/uL 1500- 7800 ABSOLUTE LYMPHOCYTES 1663 cells/uL 850-3 900 ABSOLUTE MONOCYTES 518 cells/uL 200-950 ABSOLUTE EOSINOPHILS 238 cells/uL 15-500 ABSOLUTE BASOPHILS 29 cells/uL 0-200 NEUTROPHILS 66 % NRG LYMPHOCYTES 23.1 % NRG MONOCYTES 7.2 % NRG EOSINOPHILS 3.3 % NRG BASOPHILS 0.4 % NRG TSH - 01/13/19 08:43 TSH 2.80 mIU/L 0.40-4.50 LIPID PANEL - 09/11/19 08:30 CHOLESTEROL, TOTAL 166 mg/dL <200 HDL CHOLESTEROL 37 mg/dL >40 TRIGLYCERIDES 148 mg/dL <150 LDL-CHOLESTEROL 104 mg/dL (calc) NRG CHOL/HDLC RATIO 4.5 (calc) <5.0 NON HDL CHOLESTEROL 129 mg/dL (calc) <13 0 CMP - 09/11/19 08:30 GLUCOSE 101 mg/dL 65-99 UREA NITROGEN (BUN) 35 mg/dL 7-25 CREATININE 1.03 mg/dL 0.70-1.11 eGFR NON-AFR. [place] 66 mL/min/1.73m2 > OR = 60 eGFR 76 mL/min/1.73m2 > OR = 60 BUN/CREATININE RATIO 34 (calc) 6-22 SODIUM 143 mmol/L 135-146 POTASSIUM 3.9 mmol/L 3.5-5.3 CHLORIDE 105 mmol/L 98-110 CARBON DIOXIDE 28 mmol/L 20-32 CALCIUM 9.6 mg/dL 8.6-10.3 PROTEIN, TOTAL 7.1 g/dL 6.1-8.1 ALBUMIN 4.5 g/dL 3.6-5.1 GLOBULIN 2.6 g/dL (calc) 1.9-3.7 ALBUMIN/GLOBULIN RATIO 1.7 (calc) 1.0-2. 5 BILIRUBIN, TOTAL 0.7 mg/dL 0.2-1.2 ALKALINE PHOSPHATASE 114 U/L 40-115 AST 31 U/L 10-35 ALT 33 U/L 9-46 CBC - 09/11/19 08:30 WHITE BLOOD CELL COUNT 7.3 Thousand/uL 3 .8-10.8 RED BLOOD CELL COUNT 4.61 Million/uL 4.2 0-5.80 HEMOGLOBIN 16.0 g/dL 13.2-17.1 HEMATOCRIT 46.7 % 38.5-50.0 MCV 101.3 fL 80.0-100.0 MCH 34.7 pg 27.0-33.0 MCHC 34.3 g/dL 32.0-36.0 RDW 12.0 % 11.0-15.0 PLATELET COUNT 165 Thousand/uL 140-400 MPV 12.3 fL 7.5-12.5 ABSOLUTE NEUTROPHILS 4555 cells/uL 1500- 7800 ABSOLUTE LYMPHOCYTES 1942 cells/uL 850-3 900 ABSOLUTE MONOCYTES 569 cells/uL 200-950 ABSOLUTE EOSINOPHILS 183 cells/uL 15-500 ABSOLUTE BASOPHILS 51 cells/uL 0-200 NEUTROPHILS 62.4 % NRG LYMPHOCYTES 26.6 % NRG MONOCYTES 7.8 % NRG EOSINOPHILS 2.5 % NRG BASOPHILS 0.7 % NRG TSH - 09/11/19 08:30 TSH 3.32 mIU/L 0.40-4.50 Encounters ACCT No. Visit Date/Time Discharge Status Pt. Type Provider Facility Loc./Unit Complaint [id number] 01/15/2019 08:45:00 01/15/2019 23:59: 59 [facility] Outpatient KIRILL HUBER [facility] [id number] 09/11/2019 08:30:00 Document Registration [id number] 01/13/2019 08:30:00 Document Registration [id number] 05/25/2019 13:31:00 15:00:00 DIS Outpatient JACKIE FRIED DO [facility] ER FS FALL; CHEST PAIN [id number] 05/06/2019 09:07:00 23:59:59 CLS Outpatient CECILE ART, KIRILL Rangel [facility] RAD FS M54.5 [id number] 11/23/2018 03:48:00 08:32:00 DIS Emergency GIACOMO LILLY DO [facility] ER FS CHEST PAIN, SOB [id number] 04/03/2020 20:10:[address] Emergency GUILLERMINA HANSEN DO [facility] ER FS HEADACHE/MOUTH SORE
[2020-04-03 20:41] LABS: BASOPHILS % (AUTO) 0 % (0-10); EOSINOPHILS # (AUTO) 0.1 10^3/uL (0.0-0.3); EOSINOPHILS % (AUTO) 1 % (0-10); HEMATOCRIT 46 % (40-54); HEMOGLOBIN 15.8 G/DL (13.3-17.7); LYMPHOCYTES % (AUTO) 19 % (12-44); MEAN CORPUSCULAR HEMOGLOBIN 34 PG (25-34); MEAN CORPUSCULAR HGB CONC 35 G/DL (32-36); MEAN CORPUSCULAR VOLUME 99 FL (80-99); MEAN PLATELET VOLUME 11.9 FL (7.4-10.4); MONOCYTES # (AUTO) 0.8 X 10^3 (0.0-1.0); MONOCYTES % (AUTO) 8 % (0-12); NEUTROPHILS # (AUTO) 7.1 X 10^3 (1.8-7.8); NEUTROPHILS % (AUTO) 71 % (42-75); PLATELET COUNT 155 10^3/uL (130-400); RED CELL DISTRIBUTION WIDTH 12.4 % (10.0-14.5); WHITE BLOOD COUNT 10.1 10^3/uL (4.3-11.0)
[2020-04-03 20:56] LABS: BUN/CREATININE RATIO 29; CALCIUM 9.6 MG/DL (8.5-10.1); CARBON DIOXIDE 20 MMOL/L (21-32); CHLORIDE 103 MMOL/L (98-107); CREATININE SERUM 1.06 MG/DL (0.60-1.30); GFR ESTIMATED > 60; GLUCOSE 198 MG/DL (70-105); POTASSIUM 3.9 MMOL/L (3.6-5.0); SODIUM 138 MMOL/L (135-145)
--- NOTE | 2020-04-03 21:26 | Diagnostic Imaging Report ---
PROCEDURE: CT head without contrast. TECHNIQUE: Multiple contiguous axial images were obtained through the brain without the use of intravenous contrast. Auto Exposure Controls were utilized during the CT exam to meet ALARA standards for radiation dose reduction. INDICATION: Dementia. COMPARISON: None. FINDINGS: Moderate age-related cerebral volume loss and chronic microvascular changes are present. There is no focus of acute ischemia or hemorrhage. Calcific change is seen in the cerebellum. No extra-axial fluid collection or mass is identified. The bony calvarium, paranasal sinuses and mastoids are clear . IMPRESSION: No acute intracranial abnormality. Dictated by: Dictated on workstation # [id number]
[2020-04-03] MEDS ORDERED: AMOX500C2 PO (21:32)
[2020-04-03 21:39] VITALS: BP 133/78
[2020-04-03] MEDS ORDERED: AMOXICILLIN 500 MG (POLYMOX) CAP PO ONE (21:45)
== END 2020-04-03 21:40 | disposition home or self-care (01) ==
LOC: EDUNIT# 20:07 → ER FS 20:10
DX: K02.9 Dental caries, unspecified (principal); Z79.82 Long term (current) use of aspirin
CPT/HCPCS: 36415; 70450; 80048; 85025

== ENCOUNTER → 2021-01-12 | Outpatient (CLI) | payer MEDICARE, OTHER ==
[~2021-01-12] MED LIST changes: +AMOX500C2 PO; -GEMF600T8 PO; +GEMF600T88 PO
--- NOTE | 2021-01-12 15:31 | Diagnostic Imaging Report ---
INDICATION: History of recent fall, acute low back pain. TECHNIQUE: AP, lateral, and spot imaging of the lumbar spine. CORRELATION STUDY: 05/06/2019. FINDINGS: Mild leftward curvature of the lower lumbar spine is present. There is also some straightening. Lumbar vertebral body heights and configuration overall appear generally stable. Definitive acute appearing compression deformity is not demonstrated. There is severe to marked disc space narrowing at essentially all levels of the lumbar spine with endplate osteophyte formation. Concern for potential osseous encroachment and narrowing of the canal and/or foramina at the L4-L5 and L5-S1 levels. Prominent large bulky bridging osteophytes, particularly along the right aspect from L3 to L5. Partial sclerosis and fusion at the bilateral sacroiliac joints. Advanced degenerative change of the visualized bilateral hips. IMPRESSION: No suggestion for acute bony abnormality about the lumbar spine. 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 Dictated by: Dictated on workstation # [id number]
== END ==
LOC: RAD FS 13:30
PROVIDERS: ATTEND Family Medicine
DX: M51.36 Other intervertebral disc degeneration, lumbar region (principal); Z91.81 History of falling
CPT/HCPCS: 72100

== ENCOUNTER 2021-03-20 09:25 | Emergency (ER) | payer MEDICARE ==
--- NOTE | 2021-03-20 09:31 | ED Fall/Injury ---
General Chief Complaint: Trauma-Non Activation Stated Complaint: FALL - HEAD AND ELBOW INJ Source: patient History of Present Illness Date Seen by Provider: Mar 20, 2021 Time Seen by Provider: 09:31 Initial Comments 85-year-old male presents following a fall. Patient has a slow gait and was at [facility]. This he was going through a an entrance with a gate that he did not get through it quick enough and hit him and knocked him down. They report that they feel like may be his right leg moving all slower than normal. He denies any hip pain leg pain. Patient possibly hit his head has a "headache and a little "bump on his head" patient also complains of some mild right elbow pain with very small abrasion but full range of motion. Patient is here requesting because following a fall, long term requires evaluation. Patient is alert to person, birthday, place, patient is off on his day unsure if this is on purpose since he reports that he was born in 1936 and today is 1936. Allergies and Home Medications Allergies Coded Allergies: No Known Drug Allergies (Unverified , 11/23/18) Home Medications Amoxicillin 500 Mg Capsule, 500 MG PO BID Prescribed by: GUILLERMINA HANSEN on 04/03/202131 Aspirin 81 Mg Tablet.dr, 81 MG PO DAILY, (Reported) Calcium Carbonate 500 Mg Tablet, 500 MG PO DAILY, (Reported) Donepezil HCl 10 Mg Tablet, 10 MG PO DAILY, (Reported) Gemfibrozil 600 Mg Tablet, 600 MG PO DAILY, (Reported) Ibuprofen 800 Mg Tablet, 800 MG PO DAILY PRN for PAIN-MILD, (Reported) Metoprolol Tartrate 50 Mg Tablet, 50 MG PO BID, (Reported) Multivitamin 1 Each Tablet, 1 EACH PO DAILY, (Reported) Oxybutynin Chloride 5 Mg Tablet, 5 MG PO BID, (Reported) Ranitidine HCl 150 Mg Tablet, 150 MG PO DAILY, (Reported) Timolol Maleate 5 Ml Drop.daily, 5 ML OP DAILY, (Reported) Topiramate 200 Mg Tablet, 200 MG PO BID, (Reported) Travoprost 5 Ml Drops, 5 ML OP DAILY, (Reported) Patient Home Medication List Home Medication List Reviewed: Yes Review of Systems Review of Systems Constitutional: see HPI Eyes: No Symptoms Reported Ears, Nose, Mouth, Throat: no symptoms reported Respiratory: no symptoms reported Cardiovascular: no symptoms reported Gastrointestinal: no symptoms reported Genitourinary: no symptoms reported Musculoskeletal: see HPI Skin: see HPI Psychiatric/Neurological: No Symptoms Reported Past Hdpkixx-Brmhda-Nbbdkd Hx Seasonal Allergies Seasonal Allergies: No Past Medical History Surgeries: Yes (Multiple hernia repairs) Cardiac, Coronary Stent, Orthopedic Respiratory: No Cardiac: Yes Aneurysm, Heart Attack, High Cholesterol, Hypertension Neurological: Yes Dementia Genitourinary: Yes Benign Prostatic Hyperpl Gastrointestinal: No Musculoskeletal: No Endocrine: No HEENT: Yes Cataract Loss of Vision: Left Hearing Impairment: Denies Cancer: Yes Melanoma Psychosocial: No Integumentary: No Blood Disorders: No Physical Exam Vital Signs Vital Signs - First Documented 03/20/21 09:29 Temp 36.1 Pulse 62 Resp 16 B/P (MAP) 120/65 (83) Pulse Ox 96 Capillary Refill : Height, Weight, BMI Height: 5'9.00" Weight: 220lbs. oz. 99.710793rn; 31.00 BMI Method:Estimated General Appearance: WD/WN, no apparent distress HEENT: PERRL/EOMI, normal ENT inspection Neck: supple, normal inspection Cardiovascular: normal peripheral pulses, regular rate, rhythm Respiratory: lungs clear, normal breath sounds Back: normal inspection, no vertebral tenderness Extremities: normal range of motion Neurologic/Psychiatric: no motor/sensory deficits, alert, normal mood/affect Skin: other (Small abrasion posterior right elbow) Progress/Results/Core Measures Results/Orders My Orders Orders - FANNIE TAYLOR DO Ct Head Wo (03/20/21 09:32) Vital Signs/I&O 03/20/21 03/20/21 09:29 10:13 Temp 36.1 Pulse 62 60 Resp 16 16 B/P (MAP) 120/65 (83) 112/62 Pulse Ox 96 92 Diagnostic Imaging Diagonstic Imaging: CT Plain Films/CT/US/NM/MRI: head Comments Date of Exam:03/20/21 CT HEAD WO PROCEDURE: CT head without contrast. TECHNIQUE: Multiple contiguous axial images were obtained through the brain without the use of intravenous contrast. Auto Exposure Controls were utilized during the CT exam to meet ALARA standards for radiation dose reduction. INDICATION: Fall. Trauma. Head injury and head pain. Comparison made with prior study from April 032019. FINDINGS: There are no CT findings of acute intracranial hemorrhage. There is age-related global volume loss. There are background microvascular changes in the subcortical and periventricular white matter. There are no findings of vasogenic edema. There is no hydrocephalus. There is no abnormal extra-axial collection The posterior fossa demonstrates no acute process. There are degenerative calcifications within the cerebellum. There are no findings of a calvarial fracture. The mastoids and the middle ears appear clear. There is mild mucosal thickening in the maxillary sinuses. The orbital contents unremarkable. IMPRESSION: 1. Age-related global volume loss with background microvascular change within the white matter. 2. No CT findings of an acute intracranial abnormality. There are no findings of intracranial hemorrhage. There is no calvarial fracture. Departure Impression Primary Impression: Fall Qualified Codes: W19.XXXA - Unspecified fall, initial encounter Additional Impression: Head injury due to trauma Qualified Codes: S09.90XA - Unspecified injury of head, initial encounter Disposition: 01 HOME, SELF-CARE Condition: Stable Departure-Patient Inst. Referrals: KIRILL HUBER MD (PCP/Family) Primary Care Physician Patient Instructions: Minor Head Injury, Adult ED Add. Discharge Instructions: Follow-up with your primary care provider as needed All discharge instructions reviewed with patient and/or family. Voiced understanding. FANNIE TAYLOR DO Mar 20, 2021 09:31
--- NOTE | 2021-03-20 10:00 | Diagnostic Imaging Report ---
PROCEDURE: CT head without contrast. TECHNIQUE: Multiple contiguous axial images were obtained through the brain without the use of intravenous contrast. Auto Exposure Controls were utilized during the CT exam to meet ALARA standards for radiation dose reduction. INDICATION: Fall. Trauma. Head injury and head pain. Comparison made with prior study from April 032019. FINDINGS: There are no CT findings of acute intracranial hemorrhage. There is age-related global volume loss. There are background microvascular changes in the subcortical and periventricular white matter. There are no findings of vasogenic edema. There is no hydrocephalus. There is no abnormal extra-axial collection The posterior fossa demonstrates no acute process. There are degenerative calcifications within the cerebellum. There are no findings of a calvarial fracture. The mastoids and the middle ears appear clear. There is mild mucosal thickening in the maxillary sinuses. The orbital contents unremarkable. IMPRESSION: 1. Age-related global volume loss with background microvascular change within the white matter. 2. No CT findings of an acute intracranial abnormality. There are no findings of intracranial hemorrhage. There is no calvarial fracture. Dictated by: Dictated on workstation # [id number]
[2021-03-20 10:13] VITALS: BP 112/62
== END 2021-03-20 10:13 | disposition home or self-care (01) ==
LOC: ER FS 09:27
DX: S50.311A Abrasion of right elbow, initial encounter (principal); S09.90XA Unspecified injury of head, initial encounter; I10 Essential (primary) hypertension; F03.90 Unspecified dementia, unspecified severity, without behavioral disturbance, psychotic disturbance, mood disturbance, and anxiety; E78.00 Pure hypercholesterolemia, unspecified; I25.2 Old myocardial infarction; Z79.82 Long term (current) use of aspirin; Z79.899 Other long term (current) drug therapy; W22.8XXA Striking against or struck by other objects, initial encounter
CPT/HCPCS: 70450

== ENCOUNTER 2021-06-22 08:10 | Emergency (ER) | payer MEDICARE ==
[~2021-06-22] VITALS: Ht 162 cm; Wt 70.0 kg
--- NOTE | 2021-06-22 08:38 | ED General ---
General Chief Complaint: General Problems/Pain Stated Complaint: UNRESPONSIVE Nursing Triage Note: PTS REPORTS HIS URINE WAS DARK YESTERDAY. EMS WAS CALLED OUT TO "UNRESPONSIVE" THE PT WAS ALERT AND ORIENTED UPON ARRIVAL TO ED AND PER EMS THE SAME. THE PT STATES HE WAS TRYING TO SLEEP AND "THOSE DAMN PEOPLE JUST KEEP POKING ON ME" Source of Information: Patient, Caregiver, EMS Exam Limitations: No Limitations History of Present Illness Date Seen by Provider: Jun 22, 2021 Time Seen by Provider: 08:15 Initial Comments 85-year-old male with past medical history of dementia coming in via EMS from his assisted living facility due to a phone call for "unresponsiveness". On EMS arrival he was fully responsive and responding to all questions appropriately. The patient says when they were trying to wake him up this morning, he was tired and trying to sleep and he did not want to respond. His says they actually called because he has been having a little bit more back trouble and difficulty getting up around the house. She is also concerned that his urine smells differently than usual. She says he had a urinalysis yesterday which was normal, but she is unsure of the validity of those results. In regards to his back pain, he says it is mild, chronic pain that is unchanged. He recently started hydrocodone a couple days ago which has been taking the edge off, but now he is having difficulty with bowel movements. He is otherwise denying any other acute complaints. He has not had any recent falls. Allergies and Home Medications Allergies Coded Allergies: No Known Drug Allergies (Unverified , 11/23/18) Patient Home Medication List Home Medication List Reviewed: Yes Amoxicillin (Amoxicillin) 500 Mg Capsule, 500 MG PO BID Prescribed by: GUILLERMINA HANSEN on 04/03/202131 Aspirin (Aspir 81) 81 Mg Tablet.dr, 81 MG PO DAILY, (Reported) Entered as Reported by: MURPHY SIMMS on 05/25/19 1411 Calcium Carbonate (Calcium) 500 Mg Tablet, 500 MG PO DAILY, (Reported) Entered as Reported by: ADAM CHAPARRO on 11/23/18 0755 Donepezil HCl (Donepezil HCl) 10 Mg Tablet, 10 MG PO DAILY, (Reported) Entered as Reported by: ADAM CHAPARRO on 11/23/18 0755 Finasteride (Proscar) Unknown Strength Tablet, Unknown Dose PO, (Reported) Entered as Reported by: ADAM CHAPARRO on 11/23/18754 Gemfibrozil (Gemfibrozil) 600 Mg Tablet, 600 MG PO DAILY, (Reported) Entered as Reported by: ADAM CHAPARRO on 11/23/18754 Hydrochlorothiazide (Hydrochlorothiazide) Unknown Strength Capsule, Unknown Dose PO, (Reported) Entered as Reported by: ADAM CHAPARRO on 11/23/18754 Ibuprofen (Ibuprofen) 800 Mg Tablet, 800 MG PO DAILY PRN for PAIN-MILD, (Reported) Entered as Reported by: ADAM CHAPARRO on 11/23/18754 Metoprolol Tartrate (Metoprolol Tartrate) 50 Mg Tablet, 50 MG PO BID, (Reported) Entered as Reported by: ADAM CHAPARRO on 11/23/18754 Multivitamin (Multi-Vitamin Daily) 1 Each Tablet, 1 EACH PO DAILY, (Reported) Entered as Reported by: ADAM CHAPARRO on 11/23/18754 Oxybutynin Chloride (Oxybutynin Chloride) 5 Mg Tablet, 5 MG PO BID, (Reported) Entered as Reported by: ADAM CHAPARRO on 11/23/18754 Ranitidine HCl (Ranitidine HCl) 150 Mg Tablet, 150 MG PO DAILY, (Reported) Entered as Reported by: ADAM CHAPARRO on 11/23/18754 Timolol Maleate (Timolol Maleate) 5 Ml Drop.daily, 5 ML OP DAILY, (Reported) Entered as Reported by: ADAM CHAPARRO on 11/23/18754 Topiramate (Topiramate) 200 Mg Tablet, 200 MG PO BID, (Reported) Entered as Reported by: ADAM CHAPARRO on 11/23/18754 Travoprost (Travatan Z) 5 Ml Drops, 5 ML OP DAILY, (Reported) Entered as Reported by: ADAM CHAPARRO on 11/23/18754 Review of Systems Review of Systems Constitutional: No chills, No fever EENTM: No blurred vision Respiratory: No cough, No short of breath Cardiovascular: No chest pain, No palpitations, No syncope Gastrointestinal: No abdominal pain, No diarrhea, No nausea, No vomiting Genitourinary: No discharge, No dysuria, No frequency, No pain Musculoskeletal: back pain Skin: No rash Psychiatric/Neurological: No Symptoms Reported Hematologic/Lymphatic: No Symptoms Reported Immunological/Allergic: no symptoms reported All Other Systems Reviewed Negative Unless Noted: Yes Past Nzdmnfq-Zoiqmn-Gkfwnv Hx Patient Social History Tobacco Use?: No Use of E-Cig and/or Vaping dev: No Substance use?: No Alcohol Use?: No Pt feels they are or have been: No Immunizations Up To Date First/Initial COVID19 Vaccinat: SEP 2020 Second COVID19 Vaccination Jose David: OCTOBER 2020 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 Seasonal Allergies Seasonal Allergies: No Past Medical History Surgeries: Yes (Multiple hernia repairs) Cardiac, Coronary Stent, Orthopedic Respiratory: No Cardiac: Yes Aneurysm, Heart Attack, High Cholesterol, Hypertension Neurological: Yes Dementia Genitourinary: Yes Benign Prostatic Hyperpl Gastrointestinal: No Musculoskeletal: No Endocrine: No HEENT: Yes Cataract Loss of Vision: Left Hearing Impairment: Denies Cancer: Yes Melanoma Psychosocial: No Integumentary: No Blood Disorders: No Physical Exam Vital Signs Vital Signs - First Documented 06/22/21 08:10 Temp 36.2 Pulse 83 Resp 18 B/P (MAP) 133/74 (93) Pulse Ox 97 O2 Delivery Room Air Capillary Refill : Less Than 3 Seconds Height, Weight, BMI Height: 5'9.00" Weight: 220lbs. oz. 99.937959ft; 26.00 BMI Method:Estimated General Appearance: No Apparent Distress, WD/WN Eyes: Bilateral Eye Normal Inspection, Bilateral Eye PERRL, Bilateral Eye EOMI HEENT: PERRL/EOMI, TMs Normal, Normal ENT Inspection, Pharynx Normal Neck: Full Range of Motion, Normal Inspection, Non Tender, Supple Respiratory: Chest Non Tender, Lungs Clear, Normal Breath Sounds, No Accessory Muscle Use, No Respiratory Distress Cardiovascular: Regular Rate, Rhythm, No Edema, Normal Peripheral Pulses Gastrointestinal: Normal Bowel Sounds, Non Tender, Soft; No Distended, No Guarding Back: Normal Inspection, No CVA Tenderness, No Vertebral Tenderness, Other (Paraspinal tenderness in the lower back but no midline tenderness) Extremity: Normal Capillary Refill, Normal Inspection, Normal Range of Motion, Non Tender, No Calf Tenderness, No Pedal Edema Neurologic/Psychiatric: Alert, No Motor/Sensory Deficits, Normal Mood/Affect, Other (Oriented to self and situation, unsure of the date and his exact location) Skin: Normal Color, Warm/Dry Lymphatic: No Adenopathy Progress/Results/Core Measures Suspected Sepsis SIRS Temperature: Pulse: 83 Respiratory Rate: 18 Laboratory Tests 06/22/21 08:30: White Blood Count 8.2 Blood Pressure 133 /74 Mean: 93 Laboratory Tests 06/22/21 08:30: Creatinine 0.88, Platelet Count 116L, Total Bilirubin 0.6 Results/Orders Lab Results Laboratory Tests Test 06/22/21 08:30 06/22/21 08:37 Range/Units White Blood Count 8.2 4.3-11.0 10^3/uL Red Blood Count 4.21 L 4.30-5.52 10^6/uL Hemoglobin 14.3 13.3-17.7 g/dL Hematocrit 43 40-54 % Mean Corpuscular Volume 102 H 80-99 fL Mean Corpuscular Hemoglobin 34 25-34 pg Mean Corpuscular Hemoglobin Concent 33 32-36 g/dL Red Cell Distribution Width 12.6 10.0-14.5 % Platelet Count 116 L 130-400 10^3/uL Mean Platelet Volume 11.7 9.0-12.2 fL Immature Granulocyte % (Auto) 1 % Neutrophils (%) (Auto) 76 H 42-75 % Lymphocytes (%) (Auto) 14 12-44 % Monocytes (%) (Auto) 9 0-12 % Eosinophils (%) (Auto) 1 0-10 % Basophils (%) (Auto) 0 0-10 % Neutrophils # (Auto) 6.2 1.8-7.8 X 10^3 Lymphocytes # (Auto) 1.2 1.0-4.0 X 10^3 Monocytes # (Auto) 0.7 0.0-1.0 X 10^3 Eosinophils # (Auto) 0.1 0.0-0.3 10^3/uL Basophils # (Auto) 0.0 0.0-0.1 10^3/uL Immature Granulocyte # (Auto) 0.0 0.0-0.1 10^3/uL Percent Immature Platelet Fraction 5.5 0.0-7.6 % Sodium Level 140 135-145 MMOL/L Potassium Level 3.5 L 3.6-5.0 MMOL/L Chloride Level 104 98-107 MMOL/L Carbon Dioxide Level 25 21-32 MMOL/L Anion Gap 11 5-14 MMOL/L Blood Urea Nitrogen 40 H 7-18 MG/DL Creatinine 0.88 0.60-1.30 MG/DL Estimat Glomerular Filtration Rate 82 BUN/Creatinine Ratio 45 Glucose Level 119 H 70-105 MG/DL Calcium Level 9.1 8.5-10.1 MG/DL Corrected Calcium 9.0 8.5-10.1 MG/DL Total Bilirubin 0.6 0.1-1.0 MG/DL Aspartate Amino Transf (AST/SGOT) 25 5-34 U/L Alanine Aminotransferase (ALT/SGPT) 22 0-55 U/L Alkaline Phosphatase 139 H 40-136 U/L Total Protein 6.9 6.4-8.2 GM/DL Albumin 4.1 3.2-4.5 GM/DL Urine Color YELLOW Urine Clarity SL CLOUDY Urine pH 7.0 5-9 Urine Specific [place] 1.020 1.016-1.022 Urine Protein NEGATIVE NEGATIVE Urine Glucose (UA) NEGATIVE NEGATIVE Urine Ketones NEGATIVE NEGATIVE Urine Nitrite NEGATIVE NEGATIVE Urine Bilirubin NEGATIVE NEGATIVE Urine Urobilinogen 2.0 < = 1.0 MG/DL Urine Leukocyte Esterase NEGATIVE NEGATIVE Urine RBC (Auto) NEGATIVE NEGATIVE Urine RBC NONE /HPF Urine WBC 0-2 /HPF Urine Squamous Epithelial Cells 0-2 /HPF Urine Crystals NONE /LPF Urine Bacteria NEGATIVE /HPF Urine Casts NONE /LPF Urine Mucus NEGATIVE /LPF Urine Culture Indicated NO My Orders Orders - NORAH PAIZ MD Cbc With Automated Diff (06/22/21 08:31) Comprehensive Metabolic Panel (06/22/21 08:31) Urinalysis (06/22/21 08:31) Acetaminophen Tablet (Tylenol Tablet) (06/22/21 08:45) Urine Culture (06/22/21 08:38) Medications Given in ED Current Medications Medications Dose Ordered Sig/Isidro Route Start Time Stop Time Status Last Admin Dose Admin Acetaminophen 1,000 mg ONCE ONCE PO 06/22/21 08:45 06/22/21 08:46 DC 06/22/21 08:45 1,000 MG Vital Signs/I&O 06/22/21 08:10 Temp 36.2 Pulse 83 Resp 18 B/P (MAP) 133/74 (93) Pulse Ox 97 O2 Delivery Room Air Capillary Refill : Less Than 3 Seconds Blood Pressure Mean: 93 Progress Note : Progress Note 85-year-old male with above history coming in initially because his caregiver was concerned for unresponsiveness, however, the patient is adamant that he was trying to sleep and was purposely not responding. He was fully alert when EMS arrived and has not had any issues since. His is noting he is having some chronic low back pain which he recently started hydrocodone, and her biggest concern is now he is not having any bowel movements since the past couple days. She is also concerned with the smell of his urine. Because of this basic labs will be ordered as well as urinalysis. His physical exam and regards to his back pain is reassuring, no midline tenderness, no focal deficits, no issues with incontinence. No recent trauma. The pain seems chronic in nature and is very mild. Labs significant for normal UA without signs of infection, normal sodium, normal creatinine, no white blood cell count elevation, normal hemoglobin. Vitals have remained stable and his mental status has remained at baseline. I believe he is stable for discharge with outpatient follow-up. He was sent home with strict return precautions. Departure Impression Primary Impression: Back pain Qualified Codes: M54.5 - Low back pain; G89.29 - Other chronic pain Disposition: 01 HOME, SELF-CARE Condition: Stable Departure-Patient Inst. Decision time for Depature: 09:13 Referrals: KIRILL HUBER MD (PCP/Family) Primary Care Physician Patient Instructions: Low Back Pain (DC) Add. Discharge Instructions: You are seen in the emergency department for your lower back pain. Your labs are reassuring and your urine is noninfected. Your kidney function is normal as well. I recommend using the lidocaine patch for the next several weeks to see if that helps. If you are going to continue to take the hydrocodone I will recommend either increasing your MiraLAX dose or adding a stool softener. Hydrocodone can absolutely make you more confused and so try to use this sparingly. Scripts Lidocaine (Lidocaine 5% Patch) 1 Each Adh..patch 1 EACH TP Q12H PRN for Neuropathic pain MDD 2 for 30 Days, #60 PATCH 2 patches max for 12 hours, then 12 hours patch-free period. Prov: NORAH PAIZ MD 06/22/21 NORAH PAIZ MD Jun 22, 2021 08:38
[2021-06-22 08:40] LABS: HEMATOCRIT 43 % (40-54); HEMOGLOBIN 14.3 g/dL (13.3-17.7); MEAN CORPUSCULAR HEMOGLOBIN 34 pg (25-34); MEAN CORPUSCULAR HGB CONC 33 g/dL (32-36); MEAN CORPUSCULAR VOLUME 102 fL (80-99); MEAN PLATELET VOLUME 11.7 fL (9.0-12.2); PLATELET COUNT 116 10^3/uL (130-400); WHITE BLOOD COUNT 8.2 10^3/uL (4.3-11.0)
[2021-06-22 08:41] LABS: BILIRUBIN,URINE NEGATIVE (NEGATIVE); CLARITY,URINE SL CLOUDY; COLOR,URINE YELLOW; GLUCOSE, URINE (UA) NEGATIVE (NEGATIVE); KETONES,URINE NEGATIVE (NEGATIVE); LEUKOCYTE ESTERASE ,URINE NEGATIVE (NEGATIVE); NITRITE,URINE NEGATIVE (NEGATIVE); PROTEIN,URINE NEGATIVE (NEGATIVE)
[2021-06-22 08:41] LABS: BASOPHILS % (AUTO) 0 % (0-10); EOSINOPHILS # (AUTO) 0.1 10^3/uL (0.0-0.3); EOSINOPHILS % (AUTO) 1 % (0-10); LYMPHOCYTES # (AUTO) 1.2 X 10^3 (1.0-4.0); LYMPHOCYTES % (AUTO) 14 % (12-44); MONOCYTES # (AUTO) 0.7 X 10^3 (0.0-1.0); MONOCYTES % (AUTO) 9 % (0-12); NEUTROPHILS # (AUTO) 6.2 X 10^3 (1.8-7.8); NEUTROPHILS % (AUTO) 76 % (42-75)
[2021-06-22] MEDS ORDERED: ACETAMINOPHEN 500 MG TAB (TYLENOL) PO ONE (08:45)
[2021-06-22 08:48] LABS: BACTERIA,URINE NEGATIVE /HPF; SQUAMOUS EPITHELIAL CELL,UR 0-2 /HPF; WBC,URINE 0-2 /HPF
[2021-06-22 09:05] LABS: ALBUMIN 4.1 GM/DL (3.2-4.5); BILIRUBIN,TOTAL 0.6 MG/DL (0.1-1.0); CALCIUM 9.1 MG/DL (8.5-10.1); CREATININE SERUM 0.88 MG/DL (0.60-1.30); POTASSIUM 3.5 MMOL/L (3.6-5.0); TOTAL PROTEIN 6.9 GM/DL (6.4-8.2)
[2021-06-22] MEDS ORDERED: LIDO700A45 TP (09:15)
[2021-06-22 09:18] VITALS: BP 133/74
== END 2021-06-22 09:17 | disposition home or self-care (01) ==
LOC: EDUNIT# 08:10 → ER FS 08:11
DX: M54.50 Low back pain, unspecified (principal); I10 Essential (primary) hypertension; I25.2 Old myocardial infarction; F03.90 Unspecified dementia, unspecified severity, without behavioral disturbance, psychotic disturbance, mood disturbance, and anxiety; N40.0 Benign prostatic hyperplasia without lower urinary tract symptoms; E78.00 Pure hypercholesterolemia, unspecified; Z79.82 Long term (current) use of aspirin; Z79.899 Other long term (current) drug therapy
CPT/HCPCS: 36415; 80053; 81000; 85025; 87077; 87088

== ENCOUNTER → 2021-11-05 | Outpatient (CLI) | payer MEDICARE, OTHER ==
[~2021-11-05] MED LIST changes: +LIDO700A45 TP
[2021-11-05 10:38] LABS: AMORPHOUS SEDIMENT,UR MOD AMOR PHOSPHATE /LPF; BACTERIA,URINE NEGATIVE /HPF; BILIRUBIN,URINE NEGATIVE (NEGATIVE); CLARITY,URINE CLEAR; COLOR,URINE YELLOW; GLUCOSE, URINE (UA) NEGATIVE (NEGATIVE); KETONES,URINE NEGATIVE (NEGATIVE); LEUKOCYTE ESTERASE ,URINE NEGATIVE (NEGATIVE); NITRITE,URINE NEGATIVE (NEGATIVE); PROTEIN,URINE NEGATIVE (NEGATIVE)
== END ==
LOC: LAB FS 10:09
PROVIDERS: ATTEND Family Medicine
DX: R35.0 Frequency of micturition (principal)
CPT/HCPCS: 81000

== ENCOUNTER 2021-11-29 10:23 | Emergency (ER) | payer MEDICARE, OTHER ==
[~2021-11-29] VITALS: Ht 182 cm; Wt 81.0 kg
[2021-11-29] MEDS ORDERED: NS IV 1000 ML 1,000 ML IV STA (10:42)
--- NOTE | 2021-11-29 10:47 | ED Fall/Injury ---
General Chief Complaint: Trauma-Non Activation Stated Complaint: AMS Nursing Triage Note: ARRIVED VIA EMS FROM [facility]. RECENT FALL ON THE October HE WAS WALKING BACKWARDS USING HIS WALKER. STATES SHE THINKS HE IS HAVING PAIN ON HIS LEFT SIDE AND WOULD LIKE HIM EVALUATED. STATES IT IS HARD TO TELL DUE TO HIS DEMENTIA. Source: patient, alf records, spouse Exam Limitations: clinical condition (dementia) History of Present Illness Date Seen by Provider: Nov 29, 2021 Time Seen by Provider: 10:23 Initial Comments 86-year-old male presenting with complaints of fall on November 23. Since then he has had increased confusion, complaints of pain to the head, neck, left should er, left arm, back, left side of his chest, low back, left hip. He has been less mobile and reluctant to move or get around. His as well as the staff at [facility] have had to increase their efforts to make the patient cooperate and do anything. He has underlying dementia and it is difficult to get a consistent history and complaints out of him. He ambulates with a walker and his fall initially was getting off of an elevator he was going backwards with his walker and lost his balance and fell back. He did not lose consciousness when that happened on November 23. He was not evaluated at that time. His primary care provider is Dr. Huber and his states that they have not seen him as he is out of town. She was concerned that he was possibly having a UTI or that he broke something with the fall and was not sure what else to do with him so EMS was activated and transported him to the ED for evaluation. Occurred: last week Severity: moderate Injuries/Pain Location: head, neck, upper extremity (left shoulder and forearm), chest, back, pelvis, lower extremity (left hip) Loss of Consciousness: no loss of consciousness Modifying Factors: Worse With Movement Associated Symptoms (Fall): No Abdominal Pain, No Chest Pain; Confusion (Chronic with dementia); No Dizziness; Headache (Intermittent); No Lightheadedness, No Muscle Spasms, No Nausea/Vomiting; Neck Pain (Intermittent); No Ringing in Ears, No Seizures, No Shortness of Air, No Slurred Speech; Trouble Walking (Chronic difficulty walking and uses a walker); No Vision Changes Allergies and Home Medications Allergies Coded Allergies: No Known Drug Allergies (Unverified , 11/23/18) Patient Home Medication List Home Medication List Reviewed: Yes Amoxicillin (Amoxicillin) 500 Mg Capsule, 500 MG PO BID Prescribed by: GUILLERMINA HANSEN on 04/03/202131 Aspirin (Aspir 81) 81 Mg Tablet.dr, 81 MG PO DAILY, (Reported) Entered as Reported by: MURPHY SIMMS on 05/25/19 1411 Calcium Carbonate (Calcium) 500 Mg Tablet, 500 MG PO DAILY, (Reported) Entered as Reported by: ADAM CHAPARRO on 11/23/18 075 Donepezil HCl (Donepezil HCl) 10 Mg Tablet, 10 MG PO DAILY, (Reported) Entered as Reported by: ADAM CHAPARRO on 11/23/18754 Finasteride (Proscar) Unknown Strength Tablet, Unknown Dose PO, (Reported) Entered as Reported by: ADAM CHAPARRO on 11/23/18754 Gemfibrozil (Gemfibrozil) 600 Mg Tablet, 600 MG PO DAILY, (Reported) Entered as Reported by: ADAM CHAPARRO on 11/23/18 075 Hydrochlorothiazide (Hydrochlorothiazide) Unknown Strength Capsule, Unknown Dose PO, (Reported) Entered as Reported by: ADAM CHAPARRO on 11/23/18754 Ibuprofen (Ibuprofen) 800 Mg Tablet, 800 MG PO DAILY PRN for PAIN-MILD, (Reported) Entered as Reported by: ADAM CHAPARRO on 11/23/18754 Lidocaine (Lidocaine 5% Patch) 1 Each Adh..patch, 1 EACH TP Q12H PRN for Neuropathic pain Prescribed by: NORAH PAIZ on 06/22/21 0915 Metoprolol Tartrate (Metoprolol Tartrate) 50 Mg Tablet, 50 MG PO BID, (Reported) Entered as Reported by: ADAM CHAPARRO on 11/23/18 075 Multivitamin (Multi-Vitamin Daily) 1 Each Tablet, 1 EACH PO DAILY, (Reported) Entered as Reported by: ADAM CHAPARRO on 11/23/18754 Oxybutynin Chloride (Oxybutynin Chloride) 5 Mg Tablet, 5 MG PO BID, (Reported) Entered as Reported by: ADAM CHAPARRO on 11/23/18 075 Ranitidine HCl (Ranitidine HCl) 150 Mg Tablet, 150 MG PO DAILY, (Reported) Entered as Reported by: ADAM CHAPARRO on 11/23/18754 Timolol Maleate (Timolol Maleate) 5 Ml Drop.daily, 5 ML OP DAILY, (Reported) Entered as Reported by: ADAM CHAPARRO on 11/23/18754 Topiramate (Topiramate) 200 Mg Tablet, 200 MG PO BID, (Reported) Entered as Reported by: ADAM CHAPARRO on 11/23/18754 Travoprost (Travatan Z) 5 Ml Drops, 5 ML OP DAILY, (Reported) Entered as Reported by: ADAM CHAPARRO on 11/23/18754 Review of Systems Review of Systems Constitutional: No chills, No fever Eyes: Denies Blurred Vision, Denies Drainage, Denies Pain, Denies Photophobia Ears, Nose, Mouth, Throat: denies ear pain, denies ear discharge, denies nose pain, denies nose discharge, denies epistaxis, denies mouth swelling Respiratory: No cough, No short of breath Cardiovascular: chest pain (Complains of intermittent left sided chest wall pain) Gastrointestinal: constipation (Chronic) Genitourinary: No dysuria Musculoskeletal: see HPI, back pain, joint pain (Left shoulder pain, left hip pain, left arm pain) Skin: No change in color (No bruises), No rash Psychiatric/Neurological: See HPI Past Hhjqyzs-Jcfqay-Mucpen Hx Patient Social History Tobacco Use?: No Smoking Status: Never a Smoker Substance use?: No Alcohol Use?: No Immunizations Up To Date First/Initial COVID19 Vaccinat: SEP 2020 Second COVID19 Vaccination Jose David: OCTOBER 2020 COVID19 Vaccine Hand Thermal Cutter: RAEGAN Seasonal Allergies Seasonal Allergies: No Past Medical History Surgery/Hospitalization HX: Dementia, glaucoma Surgeries: Yes (Multiple hernia repairs) Cardiac, Coronary Stent, Orthopedic Respiratory: No Cardiac: Yes Aneurysm, Heart Attack, High Cholesterol, Hypertension Neurological: Yes Dementia Genitourinary: Yes Benign Prostatic Hyperpl Gastrointestinal: No Musculoskeletal: No Endocrine: No HEENT: Yes Cataract Loss of Vision: Left Hearing Impairment: Denies Cancer: Yes Melanoma Psychosocial: No Integumentary: No Blood Disorders: No Physical Exam Vital Signs Vital Signs - First Documented 11/29/21 10:35 Temp 36.0 Pulse 87 Resp 16 B/P (MAP) 126/97 (107) Pulse Ox 97 O2 Delivery Room Air Capillary Refill : Less Than 3 Seconds Height, Weight, BMI Height: 5'9.00" Weight: 220lbs. oz. 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, alert Skin: normal color, warm/dry; No ecchymosis [place] Coma Score Best Eye Response: (4) Open Spontaneously Best Verbal Response: (4) Confused Conversation Best Motor Response: (6) Obeys Commands [place] Total: 14 Progress/Results/Core Measures Results/Orders Lab Results Laboratory Tests Test 11/29/21 10:44 11/29/21 10:55 Range/Units White Blood Count 5.9 4.3-11.0 10^3/uL Red Blood Count 4.02 L 4.30-5.52 10^6/uL Hemoglobin 13.7 13.3-17.7 g/dL Hematocrit 40 40-54 % Mean Corpuscular Volume 100 H 80-99 fL Mean Corpuscular Hemoglobin 34 25-34 pg Mean Corpuscular Hemoglobin Concent 34 32-36 g/dL Red Cell Distribution Width 12.5 10.0-14.5 % Platelet Count 129 L 130-400 10^3/uL Mean Platelet Volume 11.7 9.0-12.2 fL Immature Granulocyte % (Auto) 1 % Neutrophils (%) (Auto) 68 42-75 % Lymphocytes (%) (Auto) 20 12-44 % Monocytes (%) (Auto) 9 0-12 % Eosinophils (%) (Auto) 2 0-10 % Basophils (%) (Auto) 0 0-10 % Neutrophils # (Auto) 4.0 1.8-7.8 10^3/uL Lymphocytes # (Auto) 1.2 1.0-4.0 10^3/uL Monocytes # (Auto) 0.5 0.0-1.0 10^3/uL Eosinophils # (Auto) 0.1 0.0-0.3 10^3/uL Basophils # (Auto) 0.0 0.0-0.1 10^3/uL Immature Granulocyte # (Auto) 0.0 0.0-0.1 10^3/uL Percent Immature Platelet Fraction 5.4 0.0-7.6 % Prothrombin Time 14.4 12.2-14.7 SEC INR Comment 1.1 0.8-1.4 Activated Partial Thromboplast Time 33 24-35 SEC Sodium Level 142 135-145 MMOL/L Potassium Level 3.9 3.6-5.0 MMOL/L Chloride Level 105 98-107 MMOL/L Carbon Dioxide Level 23 21-32 MMOL/L Anion Gap 14 5-14 MMOL/L Blood Urea Nitrogen 47 H 7-18 MG/DL Creatinine 1.03 0.60-1.30 MG/DL Estimat Glomerular Filtration Rate 70 BUN/Creatinine Ratio 46 Glucose Level 121 H 70-105 MG/DL Calcium Level 9.3 8.5-10.1 MG/DL Corrected Calcium 9.3 8.5-10.1 MG/DL Magnesium Level 1.8 1.6-2.4 MG/DL Total Bilirubin 0.6 0.1-1.0 MG/DL Aspartate Amino Transf (AST/SGOT) 27 5-34 U/L Alanine Aminotransferase (ALT/SGPT) 24 0-55 U/L Alkaline Phosphatase 129 40-136 U/L Myoglobin 42.4 10.0-92.0 NG/ML Total Protein 6.7 6.4-8.2 GM/DL Albumin 4.0 3.2-4.5 GM/DL Urine Color YELLOW Urine Clarity SL CLOUDY Urine pH 7.0 5-9 Urine Specific [place] 1.020 1.016-1.022 Urine Protein NEGATIVE NEGATIVE Urine Glucose (UA) NEGATIVE NEGATIVE Urine Ketones NEGATIVE NEGATIVE Urine Nitrite NEGATIVE NEGATIVE Urine Bilirubin NEGATIVE NEGATIVE Urine Urobilinogen 1.0 < = 1.0 MG/DL Urine Leukocyte Esterase NEGATIVE NEGATIVE Urine RBC (Auto) NEGATIVE NEGATIVE Urine RBC 2-5 H /HPF Urine WBC 0-2 /HPF Urine Squamous Epithelial Cells 2-5 /HPF Urine Renal Epithelial Cells 10-25 H /HPF Urine Crystals PRESENT H /LPF Urine Amorphous Sediment FEW TONI URATES H /LPF Urine Bacteria NEGATIVE /HPF Urine Casts PRESENT /LPF Urine Hyaline Casts 5-10 H /LPF Urine Mucus SMALL H /LPF Urine Culture Indicated NO My Orders Orders - VILLA BORREGO MD Cbc With Automated Diff (11/29/21 10:38) Magnesium (11/29/21 10:38) Comprehensive Metabolic Panel (11/29/21 10:38) Myoglobin Serum (11/29/21 10:38) Protime With Inr (11/29/21 10:38) Partial Thromboplastin Time (11/29/21 10:38) Ed Iv/Invasive Line Start (11/29/21 10:38) Ua Culture If Indicated (11/29/21 10:38) Ct Head/Cervical Spine Wo (11/29/21 10:38) Ct Chest/Abdomen/Pelvis Wo (11/29/21 10:38) Shoulder 3 View Left (11/29/21 10:38) Forearm 2 View Left (11/29/21 10:38) Ns Iv 1000 Ml (Sodium Chloride 0.9%) (11/29/21 10:42) Orthopedic Equiment (11/29/21 12:58) Vital Signs/I&O 11/29/21 11/29/21 10:35 13:25 Temp 36.0 Pulse 87 91 Resp 16 16 B/P (MAP) 126/97 (107) 121/82 Pulse Ox 97 97 O2 Delivery Room Air Room Air Blood Pressure Mean: 107 Progress Progress Note #1: Progress Note The was asking to have the patient get a general checkup and evaluation through the emergency department since he has dementia and it is difficult to determine what was going on for him. Since the patient is not really complaining of anything himself and has dementia will do general testing to look for acute fractures in his left upper extremity and shoulder, left hip and pelvis, ' cervical area, scalp and skull. Look for signs of intracranial hemorrhage or mass or stroke. Obtain urinalysis and basic labs looking for signs of UTI, electrolyte imbalance, renal failure, hepatic failure Progress Note #2: Progress Note Labs appear stable without acute significant abnormality on his CBC, chemistry, urinalysis. His x-rays of the left shoulder demonstrate a nondisplaced fracture of the neck of the humerus. Forearm x-rays of the left side did not demonstrate any acute fracture. CT scan of the head and cervical spine were negative for acute intracranial process or cervical spine fracture. The CT of the chest abdomen pelvis showed old healed rib fractures on the left side but no acute fractures. He had no definite acute compression fracture or pelvis or hip fracture. I updated the patient and spouse about findings. Will treat symptomatically for the humerus fracture. Counseled to follow-up through orthopedics for evaluation and possible referral to physical therapy. Offered to use a sling but felt the patient would not wear it so he was sent out without a sling. Advised that they could increase the acetaminophen to 4 times a day instead of just twice a day. Try ice for pain as well Diagnostic Imaging Diagonstic Imaging: CT Plain Films/CT/US/NM/MRI: c-spine, head Comments [facility] [employer] [facility] [place], [place] NAME: SALLIE WILKERSON [facility] REC#: [id number] PT STATUS: REG ER : 1935 PHYSICIAN: VILLA BORREGO MD ADMIT DATE: 11/29/21/ER FS Signed Date of Exam:11/29/21 CT HEAD/CERVICAL SPINE WO PROCEDURE: CT head and CT cervical spine without contrast. TECHNIQUE: Multiple contiguous axial images were obtained through the brain and cervical spine without the use of intravenous contrast. Sagittal and coronal reformations through the cervical spine were then performed. Auto Exposure Controls were utilized during the CT exam to meet ALARA standards for radiation dose reduction. INDICATION: Fall. Headache. Increased confusion. COMPARISON: 03/20/2021. FINDINGS: CT head: No large acute territorial ischemia or hemorrhage. No midline shift or mass effect. 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 Senescent mineralization is seen in the bilateral dentate nuclei. Decreased attenuation is seen in the periventricular and subcortical white matter. The ventricles and cortical sulci are prominent. The basilar cisterns are patent and unremarkable. The calvarium is intact. Mild mucosal thickening is seen in the maxillary sinuses. The mastoid air cells are clear. CT cervical spine: No acute fracture or dislocation is seen in the cervical spine. No focal osseous lesions. The craniocervical junction is well-maintained. Moderate degenerative changes are seen in the cervical spine with disc osteophyte complexes and uncovertebral arthropathy. Soft tissues of the neck are unremarkable. The included lung apices are clear. IMPRESSION: 1. No acute hemorrhage. No CT evidence of large acute territorial ischemia. 2. No acute fracture or dislocation in the cervical spine. 3. Generalized parenchymal volume loss with scattered chronic microvascular disease. 4. 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 Dictated by: Dictated on workstation # [id number] Dict: 11/29/21 1155 Trans: 11/29/21 1204 [id number] Interpreted by: LICHA OLSEN DO Electronically signed by: LICHA OLSEN DO 11/29/21 1204 Reviewed: Reviewed by Or Diagonstic Imaging: CT Plain Films/CT/US/NM/MRI: chest, abdomen, pelvis Comments [facility] [place] [place] NAME: SALLIE WILKERSON [facility] REC#: [id number] PT STATUS: DEP ER : 1935 PHYSICIAN: VILLA BORREGO MD ADMIT DATE: 11/29/21/ER FS Signed Date of Exam:11/29/21 CT CHEST/ABDOMEN/PELVIS WO PROCEDURE: CT chest, abdomen, and pelvis without contrast. TECHNIQUE: Multiple contiguous axial images were obtained through the chest, abdomen, and pelvis without the use of intravenous contrast. Auto Exposure Controls were utilized during the CT exam to meet ALARA standards for radiation dose reduction. INDICATION: Trauma, fall with left-sided chest and hip pain. COMPARISON: CTA chest from 11/23/2018. FINDINGS: CHEST: No features of mediastinal hemorrhage. 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 No pericardial effusion. Severe coronary artery calcifications are present. No pleural effusion or pneumothorax. No features of pulmonary contusion. A small amount of dependent atelectasis in both lung bases. The left proximal humerus is incompletely included in the [id number] and for assessment of fracture is suboptimal. No acute rib fracture on either side. There are scattered old healed rib fractures on the left. No compression deformity within the thoracic vertebrae. No sternal fracture. Visualized aspects of the clavicles are intact. ABDOMEN AND PELVIS: No free intraperitoneal air or fluid. Assessment for visceral injury is suboptimal without IV contrast. A few scattered hypodensities of the liver stable and most compatible with cysts. Cholelithiasis is again noted. No pericapsular fluid collection involving the liver or spleen. Unenhanced pancreas is grossly normal. No adrenal mass. Numerous bilateral renal cysts are present. No features of perinephric hematoma. Urinary bladder is normally filled. Prostate is not enlarged. A large amount of stool within the rectum. No bowel obstruction. No features of retroperitoneal hemorrhage. No acute fracture in the pelvis or proximal femurs. No acute fracture within the lumbar spine. 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 IMPRESSION: 1. No acute traumatic injury in the chest, abdomen or pelvis by noncontrast imaging. 2. No acute rib fracture on either side. Multiple old healed left-sided rib fractures. 3. No fracture in the pelvis or proximal femurs. Dictated by: Dictated on workstation # [id number] Dict: 11/29/21 1154 Trans: 11/29/21 134 CVB [id number] Interpreted by: CARIN DONG MD Electronically signed by: CARIN DONG MD 11/29/211340 Reviewed: Reviewed by Or Diagonstic Imaging: Xray Plain Films/CT/US/NM/MRI: forearm Comments [facility] [place] [place] NAME: SALLIE WILKERSON [facility] REC#: [id number] PT STATUS: DEP ER : 1935 PHYSICIAN: VILLA BORREGO MD ADMIT DATE: 11/29/21/ER FS Signed Date of Exam:11/29/21 FOREARM 2 VIEW LEFT INDICATION: Left arm pain injury. COMPARISON: None FINDINGS: 2 views OF THE left forearm demonstrate degenerative changes involving the wrist and elbow. There is no acute fracture or dislocation. No foreign body identified. IMPRESSION: No obvious fracture deformity. Dictated by: Dictated on workstation # [id number] Dict: 11/29/21 1140 Trans: 11/29/21 1443 CVB [id number] Interpreted by: JALEEL WEINBERG Electronically signed by: JALEEL WEINBERG 11/29/21 1443 Reviewed: Reviewed by Me Diagonstic Imaging: Xray Plain Films/CT/US/NM/MRI: other (Shoulder) Comments [facility] [place] [place] NAME: SALLIE WILKERSON [facility] REC#: [id number] PT STATUS: DEP ER : 1935 PHYSICIAN: VILLA BORREGO MD ADMIT DATE: 11/29/21/ER FS Signed Date of Exam:11/29/21 SHOULDER 3 VIEW LEFT SHOULDER 3 VIEW LEFT INDICATION: Increased left shoulder pain since injury COMPARISON: None available. TECHNIQUE: 3 views left shoulder FINDINGS: Subtle lucency along the cortex of the base of the greater tuberosity. Subtle cortical step-off along the medial aspect of the surgical neck. Glenohumeral and acromioclavicular joints are normal alignment. High riding humeral head is likely due to chronic superior rotator cuff tear. IMPRESSION: There is likely an acute, minimally impacted surgical neck fracture. If it will alter patient management, then a CT of the left shoulder without contrast could be performed to more fully evaluate the suspected proximal humerus fracture. Dictated by: Dictated on workstation # [id number] Dict: 11/29/21 1139 Trans: 11/29/21 1342 CV [id number] Interpreted by: CARIN DONG MD Electronically signed by: CARIN DONG MD 11/29/21 1342 Reviewed: Reviewed by Me Departure Impression Primary Impression: Closed fracture of left proximal humerus Qualified Codes: S42.295A - Other nondisplaced fracture of upper end of left humerus, initial encounter for closed fracture Additional Impressions: Pain in left shoulder Qualified Codes: M25.512 - Pain in left shoulder Contusion of left hip, initial encounter Fall at alf Qualified Codes: W19.XXXA - Unspecified fall, initial encounter; Y92.129 - Unspecified place in alf as the place of occurrence of the external cause Disposition: 01 HOME, SELF-CARE Condition: Stable Departure-Patient Inst. Decision time for Depature: 12:56 Referrals: KIRILL HUBER MD (PCP) Primary Care Physician EVELIA HOGAN MD Patient Instructions: How to Use a Shoulder Sling ED, Preventing Falls ED, Upper Arm Fracture ED Add. Discharge Instructions: Wear sling for left shoulder fracture until cleared by Orthopedics. Follow up with Orthopedics within a week to evaluate the fracture and see about when to start physical therapy Acetaminophen 650 mg every 6 hours as needed for pain. May apply ice 15-20 minutes every 3 hours as needed for pain to left shoulder. All discharge instructions reviewed with patient and/or family. Voiced understanding. VILLA BORREGO MD Nov 29, 2021 10:47
[2021-11-29 11:00] LABS: BILIRUBIN,URINE NEGATIVE (NEGATIVE); CLARITY,URINE SL CLOUDY; COLOR,URINE YELLOW; GLUCOSE, URINE (UA) NEGATIVE (NEGATIVE); KETONES,URINE NEGATIVE (NEGATIVE); LEUKOCYTE ESTERASE ,URINE NEGATIVE (NEGATIVE); NITRITE,URINE NEGATIVE (NEGATIVE); PROTEIN,URINE NEGATIVE (NEGATIVE)
[2021-11-29 11:09] LABS: INR 1.1 (0.8-1.4); PROTHROMBIN TIME PATIENT 14.4 SEC (12.2-14.7)
[2021-11-29 11:14] LABS: BASOPHILS % (AUTO) 0 % (0-10); EOSINOPHILS # (AUTO) 0.1 10^3/uL (0.0-0.3); EOSINOPHILS % (AUTO) 2 % (0-10); HEMATOCRIT 40 % (40-54); HEMOGLOBIN 13.7 g/dL (13.3-17.7); LYMPHOCYTES # (AUTO) 1.2 10^3/uL (1.0-4.0); LYMPHOCYTES % (AUTO) 20 % (12-44); MEAN CORPUSCULAR HEMOGLOBIN 34 pg (25-34); MEAN CORPUSCULAR HGB CONC 34 g/dL (32-36); MEAN CORPUSCULAR VOLUME 100 fL (80-99); MEAN PLATELET VOLUME 11.7 fL (9.0-12.2); MONOCYTES # (AUTO) 0.5 10^3/uL (0.0-1.0); MONOCYTES % (AUTO) 9 % (0-12); NEUTROPHILS % (AUTO) 68 % (42-75); PLATELET COUNT 129 10^3/uL (130-400); WHITE BLOOD COUNT 5.9 10^3/uL (4.3-11.0)
[2021-11-29 11:23] LABS: BILIRUBIN,TOTAL 0.6 MG/DL (0.1-1.0); CALCIUM 9.3 MG/DL (8.5-10.1); CREATININE SERUM 1.03 MG/DL (0.60-1.30); MAGNESIUM 1.8 MG/DL (1.6-2.4); POTASSIUM 3.9 MMOL/L (3.6-5.0); TOTAL PROTEIN 6.7 GM/DL (6.4-8.2)
[2021-11-29 11:25] LABS: AMORPHOUS SEDIMENT,UR FEW AMOR URATES /LPF; BACTERIA,URINE NEGATIVE /HPF; WBC,URINE 0-2 /HPF
--- NOTE | 2021-11-29 11:42 | Diagnostic Imaging Report ---
INDICATION: Left arm pain injury. COMPARISON: None FINDINGS: 2 views OF THE left forearm demonstrate degenerative changes involving the wrist and elbow. There is no acute fracture or dislocation. No foreign body identified. IMPRESSION: No obvious fracture deformity. Dictated by: Dictated on workstation # [id number]
--- NOTE | 2021-11-29 11:42 | Diagnostic Imaging Report ---
SHOULDER 3 VIEW LEFT INDICATION: Increased left shoulder pain since injury COMPARISON: None available. TECHNIQUE: 3 views left shoulder FINDINGS: Subtle lucency along the cortex of the base of the greater tuberosity. Subtle cortical step-off along the medial aspect of the surgical neck. Glenohumeral and acromioclavicular joints are normal alignment. High riding humeral head is likely due to chronic superior rotator cuff tear. IMPRESSION: There is likely an acute, minimally impacted surgical neck fracture. If it will alter patient management, then a CT of the left shoulder without contrast could be performed to more fully evaluate the suspected proximal humerus fracture. Dictated by: Dictated on workstation # [id number]
--- NOTE | 2021-11-29 12:04 | Diagnostic Imaging Report ---
PROCEDURE: CT head and CT cervical spine without contrast. TECHNIQUE: Multiple contiguous axial images were obtained through the brain and cervical spine without the use of intravenous contrast. Sagittal and coronal reformations through the cervical spine were then performed. Auto Exposure Controls were utilized during the CT exam to meet ALARA standards for radiation dose reduction. INDICATION: Fall. Headache. Increased confusion. COMPARISON: 03/20/2021. FINDINGS: CT head: No large acute territorial ischemia or hemorrhage. No midline shift or mass effect. 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 Senescent mineralization is seen in the bilateral dentate nuclei. Decreased attenuation is seen in the periventricular and subcortical white matter. The ventricles and cortical sulci are prominent. The basilar cisterns are patent and unremarkable. The calvarium is intact. Mild mucosal thickening is seen in the maxillary sinuses. The mastoid air cells are clear. CT cervical spine: No acute fracture or dislocation is seen in the cervical spine. No focal osseous lesions. The craniocervical junction is well-maintained. Moderate degenerative changes are seen in the cervical spine with disc osteophyte complexes and uncovertebral arthropathy. Soft tissues of the neck are unremarkable. The included lung apices are clear. IMPRESSION: 1. No acute hemorrhage. No CT evidence of large acute territorial ischemia. 2. No acute fracture or dislocation in the cervical spine. 3. Generalized parenchymal volume loss with scattered chronic microvascular disease. 4. 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 Dictated by: Dictated on workstation # [id number]
--- NOTE | 2021-11-29 12:17 | Diagnostic Imaging Report ---
PROCEDURE: CT chest, abdomen, and pelvis without contrast. TECHNIQUE: Multiple contiguous axial images were obtained through the chest, abdomen, and pelvis without the use of intravenous contrast. Auto Exposure Controls were utilized during the CT exam to meet ALARA standards for radiation dose reduction. INDICATION: Trauma, fall with left-sided chest and hip pain. COMPARISON: CTA chest from 11/23/2018. FINDINGS: CHEST: No features of mediastinal hemorrhage. 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 No pericardial effusion. Severe coronary artery calcifications are present. No pleural effusion or pneumothorax. No features of pulmonary contusion. A small amount of dependent atelectasis in both lung bases. The left proximal humerus is incompletely included in the [id number] and for assessment of fracture is suboptimal. No acute rib fracture on either side. There are scattered old healed rib fractures on the left. No compression deformity within the thoracic vertebrae. No sternal fracture. Visualized aspects of the clavicles are intact. ABDOMEN AND PELVIS: No free intraperitoneal air or fluid. Assessment for visceral injury is suboptimal without IV contrast. A few scattered hypodensities of the liver stable and most compatible with cysts. Cholelithiasis is again noted. No pericapsular fluid collection involving the liver or spleen. Unenhanced pancreas is grossly normal. No adrenal mass. Numerous bilateral renal cysts are present. No features of perinephric hematoma. Urinary bladder is normally filled. Prostate is not enlarged. A large amount of stool within the rectum. No bowel obstruction. No features of retroperitoneal hemorrhage. No acute fracture in the pelvis or proximal femurs. No acute fracture within the lumbar spine. 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 IMPRESSION: 1. No acute traumatic injury in the chest, abdomen or pelvis by noncontrast imaging. 2. No acute rib fracture on either side. Multiple old healed left-sided rib fractures. 3. No fracture in the pelvis or proximal femurs. Dictated by: Dictated on workstation # [id number]
[2021-11-29 13:25] VITALS: BP 121/82
== END 2021-11-29 13:25 | disposition home or self-care (01) ==
LOC: EDUNIT# 10:23 → ER FS 10:24
DX: S42.202A Unspecified fracture of upper end of left humerus, initial encounter for closed fracture (principal); S70.02XA Contusion of left hip, initial encounter; W19.XXXA Unspecified fall, initial encounter; Y92.129 Unspecified place in nursing home as the place of occurrence of the external cause
CPT/HCPCS: 36415; 51701; 70450; 71250; 72125; 73030; 74176; 80053; 81000; 83735; 83874; 85025; 85610; 85730; 96360

== ENCOUNTER → 2022-06-13 | Outpatient (CLI) | payer MEDICARE, OTHER ==
[2022-06-13 14:12] LABS: POTASSIUM 4.5 MMOL/L (3.6-5.0)
[2022-06-13 14:13] LABS: ALBUMIN 3.2 GM/DL (3.2-4.5); BILIRUBIN,TOTAL 0.7 MG/DL (0.1-1.0); CREATININE SERUM 0.68 MG/DL (0.60-1.30)
== END ==
LOC: IHC 13:25
PROVIDERS: ATTEND Family Medicine
DX: G31.1 Senile degeneration of brain, not elsewhere classified (principal); E78.00 Pure hypercholesterolemia, unspecified; F32.9 Major depressive disorder, single episode, unspecified; I10 Essential (primary) hypertension; R56.9 Unspecified convulsions
CPT/HCPCS: 80053; 84134